=== PATIENT | male | born 1960 | race Caucasian/White ===

== ENCOUNTER 2024-06-28 14:35 | Inpatient (IN) | payer BC, SELFPAY ==
[2024-06-28] VITALS (10 sets, daily range): BP systolic 93–136; BP diastolic 61–86; BMI 32.3; BMI 32.0
--- NOTE | 2024-06-28 12:53 | ED.GENMED ---
History of Present Illness
General
Chief Complaint: Rectal Bleeding
Source: patient
Exam Limitations: none
Time Seen by Provider: 06/28/24 12:36
History of Present Illness
History of Present Illness:
See MDM
Past History
Past History
ED Past Medical History: CAD and Hypercholesterolemia
ED Past Surgical History: Other (left rotator cuff repain, Fem-pop bypass)
Social History
Personal:
Living: with family
Employment: Not employed
Phy Exam
Physical Exam
Physical Exam:
See MDM
Course
Orders/Labs/Results
Orders:
Orders
06/28/24 12:45
Ondansetron Injectable [Zofran] 4 mg .ROUTE .STK-MED ONE
06/28/24 12:52
Cardiac Monitoring- Treatment ONCE
IV Insert/Care/Rem.- Treatment PRN
0.9% Sodium Chloride 1000 ml [Nss] 1,000 ml IV BOLUS
Ondansetron Injectable [Zofran] 4 mg IV NOW STA
Pantoprazole 80 mg/100 ml Nss [Protonix] 80 mg in 100 ml IV NOW
Pantoprazole [Protonix IV] 80 mg IV NOW STA
06/28/24 12:54
Type+Screen Urgent
Complete Blood Count/With Diff Urgent
Comprehensive Metabolic Panel Urgent
PTT Urgent
Prothrombin Time Urgent
06/28/24 13:27
GASTROINTESTINAL CONSULT Urgent
Consulting Provider: Kirk Jay
Was physician already notified: Yes
Abnormal Lab Results
06/28/24
12:54
WBC 12.8 H 10^3/uL
(4.8-10.8)
RBC 2.84 L 10^6/uL
(4.70-6.10)
Hgb 8.2 L g/dL
(13.0-18.0)
Hct 23.8 L %
(39.0-52.0)
RDW 18.3 H %
(11.5-14.5)
Abs Immat Gran (auto) 0.1 H 10^3/uL
(0-0.05)
Absolute Neuts (auto) 10.7 H 10^3/uL
(1.4-6.5)
Neutrophils % 83.4 H %
(42.2-75.2)
Lymphocytes % 10.8 L %
(20.5-51.1)
PT 22.9 H Sec
(11.4-14.6)
APTT 39.4 H Sec
(23.4-35.0)
Carbon Dioxide 21 L mmol/L
(22-30)
BUN 64 H mg/dl
(9-20)
Creatinine 1.5 H mg/dL
(0.7-1.3)
Glucose 148 H mg/dl
(70-99)
06/28/24 12:54
06/28/24 12:54
Vital Signs
Initial and Last Documented VS:
Initial Vital Signs
Temp Pulse Resp BP Pulse Ox
98.2 F 72 16 126/68 99
06/28/24 12:19 06/28/24 12:19 06/28/24 12:19 06/28/24 12:19 06/28/24 12:19
Last Documented Vital Signs
Temp Pulse Resp BP Pulse Ox
98.2 F 68 18 103/66 99
06/28/24 12:19 06/28/24 13:15 06/28/24 13:15 06/28/24 13:00 06/28/24 13:15
MDM/Problems Addressed
Differential Diagnosis Includes:
HPI and MDM Narrative:
64-year-old male presenting with coffee-ground emesis and black stool. This has progressed over the past few days. Patient recently had a complicated hospital stay at [facility]. He received a femoropopliteal bypass. Before the surgery, he needed
cardiac clearance and he was found to have LAD stenosis requiring stent. Patient has been compliant with Xarelto for his A-fib. However, patient was started on aspirin and Plavix after the surgery. at bedside is concerned because she states
he notoriously has low platelets.
On exam, we discussed concern for upper GI bleeding. However, patient does described bloody nose with clots. It is potential that he is swallowing blood. Regardless, given his history and complaint, will start Protonix drip
Physical exam
General: Well appearing and non-toxic
HEENT: protecting airway
Neck: appears supple
CV: No evidence of cyanosis. Normal rate
Resp: No accessory muscle use
Abd: Non-distended and nontender
Extremities: Skin tear to right forearm with mild oozing
Neuro: alert
Psych: Normal affect
Skin: pale
Problems Addressed including Acute and Chronic Conditions affecting care:
1. Upper GI bleeding
Acuity: acute
Prognosis: stable
Details: Will start Protonix drip. Will obtain hemoglobin and platelet testing and ultimately admit
2. Right arm skin tear
Acuity: acute
Prognosis: stable
Details: Gelfoam placed
Updates
Hemoglobin low at 8.2. Patient prophylactically signed consent for blood transfusion if needed. GI made aware. Will admit
Differential Diagnosis (but not limited to): Nosebleed, upper GI bleed, stress ulcer
Testing considered: CT Abd/pelvis but no significant tenderness noted
Drug therapy (if applicable): OTC meds, please see d/c instruction regarding Rx drugs
Amount and/or Complexity of Data Reviewed
Clinical info obtained from: Patient. states that aspirin and Plavix was recently added to his Xarelto regimen
External data reviewed: N/A
Labs I independently reviewed (but not limited to): Hemoglobin 8 point
Radiology: N/A
Pulse Ox: not hypoxic
EKG independently reviewed: N/A
[employer] Manufacturer: A-fib
Critical Care: The high probability of a clinically significant, sudden or life threatening deterioration of the gastrointestinal system(s) required my full and direct attention, intervention and personal management. The aggregate critical care time
was 35 minutes. This time is in addition to time spent performing reported procedures but includes the following:
[x] Data Review and interpretation
[x] Patient assessment and monitoring of vital signs
[x] Documentation
[x] Medication orders and management
Risk of Complication:
Social Determinants of health: Good social support
Discussed with other providers: Hospitalist, slps
Escalation of Care includes Admit/Obs: Given the anemia with concern for active GI bleeding, will admit
Occasional wrong word or 'sound a like' substitutions may have occurred due to the inherent limitations of voice recognition software. Read the chart carefully and recognize, using context, where substitutions have occurred.
*Critical Care Note
Total Time (30-74mins, 75-104mins- exclusive of procedures): 35 min
ED Attending Note
-
Portions of this chart may have been created with voice recognition software.� Occasional wrong word or��sound alike� substitutions may have occurred due to the inherent limitations of voice recognition software.
Discharge Plan
Departure
Patient Disposition: Admit
Date of Disposition: 06/28/24
Time of Disposition: 13:36
Admit to: IMU
Presentation/result/management discussed w/ accepting MD/DO: Hospitalist
Discharge Problem:
UGIB (upper gastrointestinal bleed), Symptomatic anemia
Prescriptions:
No Action
atorvastatin [Lipitor] 40 mg Tablet
40 mg PO QPM
tizanidine 4 mg Tablet
4 mg PO BIDPRN PRN (Reason: muscle spasms)
lisinopril 20 mg Tablet
20 mg PO DAILY
clopidogrel [Plavix] 75 mg Tablet
75 mg PO DAILY
aspirin 81 mg Tablet,Delayed Release (Dr/Ec)
81 mg PO NOON
tramadol 50 mg Tablet
50 mg PO BIDPRN PRN (Reason: moderate pains)
oxycodone-acetaminophen 5-325 mg Tablet
1 tab PO Q6HPRN PRN (Reason: severe pain)
bismuth subsalicylate [Pepto-Bismol] 262 mg/15 mL Suspension
524 mg PO DAILYPRN PRN (Reason: gerd)
hydrochlorothiazide 25 mg Tablet
25 mg PO DAILY
fluoxetine [Prozac] 20 mg Capsule
20 mg PO DAILY
pregabalin [Lyrica] 50 mg Capsule
50 mg PO BID
Xarelto 20 mg Tablet
20 mg PO QPM
Interventions
Interventions:
*Risk Screen - Suicide Last Done: 06/28/24 12:19
*General Assessment Last Done: 06/28/24 12:19
*Neglect/Abuse Screening Last Done: 06/28/24 12:19
EQ-Tvmtwm-Dczkrvgyta Assessment Last Done: 06/28/24 13:22
ED- Cardiac Assessment Last Done: 06/28/24 13:22
ED- Pulmonary Assessment Last Done: 06/28/24 13:22
Discharge Date and Time
Print Language: SOUTH AFRICAN
[2024-06-28] MEDS: PROTONIX 100 IV ×2 (12:57→16:02)
[2024-06-28] MEDS: PROTONIX IV 80 MG IV (12:57)
[2024-06-28] MEDS: NSS 1000 IV (12:58)
[2024-06-28] MEDS: ZOFRAN 4 MG IV ×3 (12:58→22:57)
[2024-06-28 13:07] LABS: % Basophils 0.3 % (0-2); % Eosinophils 0.2 % (0-6); % Immature Granulocytes 0.4 % (0-0.5); % Lymphocytes 10.8 % (20.5-51.1); % Monocytes 4.9 % (1.7-9.3); % Neutrophils 83.4 % (42.2-75.2); Absolute Immature Granulocytes 0.1 10^3/uL (0-0.05); Absolute Lymphocytes 1.4 10^3/uL (1.2-3.4); Absolute Monocytes 0.6 10^3/uL (0.1-0.6); Absolute Neutrophils 10.7 10^3/uL (1.4-6.5); Hematocrit 23.8 % (39.0-52.0); Hemoglobin 8.2 g/dL (13.0-18.0); Mean Corp Hgb Conc. 34.5 g/dL (33.0-37.0); Mean Corpuscular Hgb 28.9 pg (27.0-31.0); Mean Corpuscular Volume 83.8 fL (80.0-94.0); Mean Platelet Volume 10.3 fL (7.4-10.4); Nucleated Red Blood Cells % 0 % (-); Platelet Count 209 10^3/uL (130-400); Red Blood Cell Count 2.84 10^6/uL (4.70-6.10); Red Cell Dist. Width 18.3 % (11.5-14.5); White Blood Cell Count 12.8 10^3/uL (4.8-10.8)
[2024-06-28 13:11] LABS: ALT (SGPT) 24 U/L (0-50); AST (SGOT) 31 U/L (17-59); Alkaline Phosphatase 101 U/L (38-126); Blood Urea Nitrogen 64 mg/dl (9-20); Calcium 9.1 mg/dl (8.4-10.2); Carbon Dioxide 21 mmol/L (22-30); Chloride 102 mmol/L (98-107); Estimated Creatinine Clearance -7 ml/min; Glucose 148 mg/dl (70-99); Potassium 4.5 mmol/L (3.5-5.1); Sodium 137 mmol/L (135-145); Total Bilirubin 0.9 mg/dl (0.2-1.3); Total Protein 6.6 g/dl (6.3-8.2); eGFR 51.67
[2024-06-28 13:15] LABS: APTT 39.4 Sec (23.4-35.0); INR 2.04; PT 22.9 Sec (11.4-14.6)
--- NOTE | 2024-06-28 13:36 | CON.GI ---
Consultation
-
Date/Time Consultation Requested: 06/28/24 13.27 pm
Date/Time Consultation Performed: 06/28/24 13.48 pm
Requesting Provider: Socrates Hickman DO
Performing Provider: Domenica Reed MD
Reason for Consultation: Hematemesis and melena
Medical History
Chief Complaint / HPI
Chief Complaint: Hematemesis and melena
History of Present Illness:
The patient is a 64-year-old male who has a PMH of A-fib on Xerolto for last 4-5 years, peripheral arterial disease status post left lower extremity femoropopliteal bypass on 06/15, preoperative CAD status post stent on 06/13, hypertension,
anxiety/depression, osteoarthritis, iron deficiency anemia, neuropathy, cirrhosis secondary to Tylenol and consuming alcohol, abdominal aortic aneurysm. The patient presented to ER complaining from coffe-grounded emesis and tarry stools. The patient
reports he started to have dark colored stool yesterday morning and had coffee grounded emesis yesterday evening. The patient reported he started to take Xarelto with his Plavix and aspirin since last week after he gave a break due his surgery. The
patient denies any similar symptoms before and denies abdominal pain.He denied vomiting/BM today. The patient reported that his hgb level was found 4.9 about 2 years ago and he had EGD/Colonoscopy at [facility] which was not significant
per patient`s report. He was recommended a capsule endoscopic study but he did not have it. Additionally the patient reported having cirrhosis related alcohol consuming/Tylenol taking in the past but he did not need any follow up for that reason.
Past Medical History
Past Medical History: Arrhythmias (paroxysmal atrial fibrillation on Xerolto ) and Other (peripheral arterial disease status post left lower extremity femoropopliteal bypass on 06/15, preoperative CAD status post stent on 06/13, hypertension,
anxiety/depression, osteoarthritis, iron deficiency anemia, neuropathy, cirrhosis secondary to Tylenol/alcohol consuming )
Social History
Tobacco: Non-Smoker
Alcohol: None
Drug: None
Family History
Family History: Reviewed & Not Pertinent
Allergies / Home Medications
Allergy/AdvReac Type Severity Reaction Status Date / Time
No Known Allergies Allergy Verified 06/28/24 12:18
�Medication �Instructions �Recorded
aspirin 81 mg tablet,delayed 81 mg PO NOON 06/28/24
release
atorvastatin 40 mg tablet (Lipitor) 40 mg PO QPM 06/28/24
bismuth subsalicylate 262 mg/15 mL 524 mg PO DAILYPRN PRN gerd 06/28/24
oral suspension (Pepto-Bismol)
clopidogrel 75 mg tablet (Plavix) 75 mg PO DAILY 06/28/24
fluoxetine 20 mg capsule (Prozac) 20 mg PO DAILY 06/28/24
hydrochlorothiazide 25 mg tablet 25 mg PO DAILY 06/28/24
lisinopril 20 mg tablet 20 mg PO DAILY 06/28/24
oxycodone-acetaminophen 5 mg-325 1 tab PO Q6HPRN PRN severe pain 06/28/24
mg tablet
pregabalin 50 mg capsule (Lyrica) 50 mg PO BID 06/28/24
rivaroxaban 20 mg tablet (Xarelto) 20 mg PO QPM 06/28/24
tizanidine 4 mg tablet 4 mg PO BIDPRN PRN muscle spasms 06/28/24
tramadol 50 mg tablet 50 mg PO BIDPRN PRN moderate pains 06/28/24
Review of Systems
-
History Source: Patient
All other systems: A 12 pt ROS was Negative except as stated above in HPI
Constitutional: Reports No Symptoms
EENT: Reports No Symptoms
Respiratory: Reports No Symptoms
Cardiac: Reports No Symptoms
Abdomen/GI: Reports No Symptoms
: Reports No Symptoms
Musculoskeletal: Reports No Symptoms
Skin: Reports No Symptoms
Neurological: Reports No Symptoms
Vital Signs
Temp Pulse Resp BP Pulse Ox
98.2 F 68 18 103/66 99
06/28/24 12:19 06/28/24 13:15 06/28/24 13:15 06/28/24 13:00 06/28/24 13:15
Physical Exam
Exam
General: Well Developed, Well Nourished and No Apparent Distress
HEENT: Normocephalic and Anicteric
Respiratory: Clear
Cardiac: S1/S2 and Irregular Rhythm
GI: Soft and Non Tender
Musculoskeletal: No Clubbing, No Cyanosis and No Edema
Skin: Warm and Dry
Neuro: Awake, Alert, Oriented and AO x 3
Results
WBC 12.8 10^3/uL (4.8-10.8) H 06/28/24 12:54
Hgb 8.2 g/dL (13.0-18.0) L 06/28/24 12:54
Hct 23.8 % (39.0-52.0) L 06/28/24 12:54
MCV 83.8 fL (80.0-94.0) 06/28/24 12:54
Plt Count 209 10^3/uL (130-400) 06/28/24 12:54
Absolute Neuts (auto) 10.7 10^3/uL (1.4-6.5) H 06/28/24 12:54
PT 22.9 Sec (11.4-14.6) H 06/28/24 12:54
INR 2.04 06/28/24 12:54
APTT 39.4 Sec (23.4-35.0) H 06/28/24 12:54
Sodium 137 mmol/L (135-145) 06/28/24 12:54
Potassium 4.5 mmol/L (3.5-5.1) 06/28/24 12:54
Chloride 102 mmol/L (98-107) 06/28/24 12:54
Carbon Dioxide 21 mmol/L (22-30) L 06/28/24 12:54
BUN 64 mg/dl (9-20) H 06/28/24 12:54
Creatinine 1.5 mg/dL (0.7-1.3) H 06/28/24 12:54
Calcium 9.1 mg/dl (8.4-10.2) 06/28/24 12:54
Total Bilirubin 0.9 mg/dl (0.2-1.3) 06/28/24 12:54
AST 31 U/L (17-59) 06/28/24 12:54
ALT 24 U/L (0-50) 06/28/24 12:54
Alkaline Phosphatase 101 U/L (38-126) 06/28/24 12:54
Diagnostic Image Results:
No Imaging related GI
Prior GI Procedures:
Patient reports having colonoscopy and endoscopy 2 years ago at [facility] and results were not significant per patient`s report.
EGD:
Colonoscopy:
Assessment / Plan
-
Impression: The patient is a
Assessment/Plan:
#Hematemesis and melena possibly secondary to upper GI bleeding likely secondary to anticoagulants
-Patient has been on Aspirin+Plavix+Xarelto since last week
-Last taking all anticoagulants was yesterday
-Had 3 episodes of hematemesis and one episode of melena yesterday
-Hgb level 8.2 from 13, BUN 64
-Follow up Hgb level with hgb serials Q8 H
-Keep HGB level ~8-9 considering his CAD
-Hold aspirin, Plavix and Xarelto for now
-Continue PPI gtt
-No plan for endoscopy for now if hgb level stays kirby
-Cardio cons is recommended
#Hx of cirrhosis
-Reports related alcohol consuming or Tylenol taking in the past
-Did not need follow up for that reason in the past
-AST 31, ALT 24, ALP 101, Albumin 4, total protein 6.6 likely liver recovered
-Abd US can be considered
-EGV was not seen on EGD 2 years ago, per patient`s report
We will follow up the patient for further recommendations.
-
-
Thank you for consultation and allowing me to participate in the patient's care. Please call the travel consultant GI physician during the after hours with any questions or concerns.
--- NOTE | 2024-06-28 14:09 | HPS.HSE ---
Addendum entered and electronically signed by Zeinab Christina MD 06/28/24 14:31:
Ordered Octreotide drip and Ceftriaxone to treat Variceal Bleeding.
Original Note:
Family Physician
-
Family Physician:
Chief Complaint
-
rectal bleeding
History of Present Illness
64-year-old male past medical history of paroxysmal atrial fibrillation on Eliquis, peripheral arterial disease status post left lower extremity femoropopliteal bypass on 06/15, preoperative CAD status post stent on 06/13, hypertension,
anxiety/depression, osteoarthritis, iron deficiency anemia, neuropathy, cirrhosis secondary to Tylenol, abdominal aortic aneurysm presenting with rectal bleeding since yesterday. He had 1 episode of black rectal bleeding. He had 2 episodes of
vomiting of coffee-ground emesis since yesterday. Yesterday he also had bloody clots from his left nostril. He has been having cough secondary to the vomiting and nausea.
On 06/15 he had left lower extremity femoropopliteal bypass. He was started on aspirin and Plavix at that time in addition to Xarelto. He had preoperative stress test on 06/13 and was found to have CAD had stent placed at that time. His
hemoglobin at that time was 13.
He has chronic shortness of breath. He denies any dizziness. He denies any chest pain.
Patient has a history of anemia discovered 2 years ago without bleeding and at that time he had blood transfusion, EGD and colonoscopy which were unremarkable.
He states that he has a history of cirrhosis secondary to excessive Tylenol use in the past. He denies using Tylenol anymore. He denies alcohol. He denies smoking. He denies any family history of GI problems.
Medical History
Past Medical History
Past Medical History: Reports Other (paroxysmal atrial fibrillation on Eliquis, peripheral arterial disease status post left lower extremity femoropopliteal bypass on 06/15, preoperative CAD status post stent on 06/13, hypertension,
anxiety/depression, osteoarthritis, iron deficiency anemia, neuropathy, cirrhosis secondary to Tylenol, )
Past Surgical History: Reports Orthopedic
Social History
Tobacco: Non-smoker
Alcohol: None
Drug: None
Family History
Family History: Not pertinent
Allergies / Home Medications
Allergies reflects when Allergies were last updated in [facility].
Home Medications with original date entered in [facility]
Allergy/Medication List:
Allergies
Allergy/AdvReac Type Severity Reaction Status Date / Time
No Known Allergies Allergy Verified 06/28/24 12:18
Home Medications
aspirin 81 mg tablet,delayed release 81 mg PO NOON 06/28/24
atorvastatin 40 mg tablet (Lipitor) 40 mg PO QPM 06/28/24
bismuth subsalicylate 262 mg/15 mL oral suspension (Pepto-Bismol) 524 mg PO DAILYPRN PRN gerd 06/28/24
clopidogrel 75 mg tablet (Plavix) 75 mg PO DAILY 06/28/24
fluoxetine 20 mg capsule (Prozac) 20 mg PO DAILY 06/28/24
hydrochlorothiazide 25 mg tablet 25 mg PO DAILY 06/28/24
lisinopril 20 mg tablet 20 mg PO DAILY 06/28/24
oxycodone-acetaminophen 5 mg-325 mg tablet 1 tab PO Q6HPRN PRN severe pain 06/28/24
pregabalin 50 mg capsule (Lyrica) 50 mg PO BID 06/28/24
rivaroxaban 20 mg tablet (Xarelto) 20 mg PO QPM 06/28/24
tizanidine 4 mg tablet 4 mg PO BIDPRN PRN muscle spasms 06/28/24
tramadol 50 mg tablet 50 mg PO BIDPRN PRN moderate pains 06/28/24
Review of Systems
-
History Source: Patient
A 12 point ROS was completed and negative except as noted: Yes
Constitutional: Reports No Symptoms
EENT: Reports No Symptoms
Respiratory: Reports No Symptoms
Cardiac: Reports No Symptoms
Abdomen/GI: Reports No Symptoms
: Reports No Symptoms
Musculoskeletal: Reports No Symptoms
Skin: Reports No Symptoms
Neurological: Reports No Symptoms
Endocrine: Reports No Symptoms
Hematologic/Lymphatic: Reports No Symptoms
Psych: Reports No Symptoms
Physical Exam
Vital Signs
Vital Signs
Temp Pulse Resp BP Pulse Ox
98.2 F 68 18 103/66 99
06/28/24 12:19 06/28/24 13:15 06/28/24 13:15 06/28/24 13:00 06/28/24 13:15
Physical Exam
General: Well Developed, Well Nourished and No Apparent Distress
HEENT: NormoCephalic, Moist mucous membranes and Atraumatic
Respiratory: Clear
Cardiac: S1/S2 and Regular Rhythm; No Murmur or Rub
GI: Soft, Non Tender, Non Distended and Normal Bowel Sounds; No Organomegaly
Rectal: Deferred by Provider
Musculoskeletal: No Clubbing, No Cyanosis and No Edema
Skin: No Rash
Neuro: Nonfocal/grossly intact
Laboratory Results
-
06/28/24 12:54
06/28/24 12:54
Laboratory Results
PT 22.9 Sec (11.4-14.6) H 06/28/24 12:54
INR 2.04 06/28/24 12:54
APTT 39.4 Sec (23.4-35.0) H 06/28/24 12:54
Total Bilirubin 0.9 mg/dl (0.2-1.3) 06/28/24 12:54
AST 31 U/L (17-59) 06/28/24 12:54
ALT 24 U/L (0-50) 06/28/24 12:54
Alkaline Phosphatase 101 U/L (38-126) 06/28/24 12:54
Data Reviewed
-
Lab Data: Labs Reviewed by me
Old Records: Reviewed
Impression/Plan
-
IMPRESSION:
PLAN:
# Hematemesis/melena secondary to upper GI bleeding secondary to aspirin/Plavix and Xarelto simultaneously
# Acute blood loss anemia
-Hemoglobin 8.2 from 13
-Hold aspirin, Xarelto, Plavix for now but will need to resume at least aspirin in the short-term
-N.p.o.
-Protonix drip
-Zofran
-GI consulted
# Left nasal epistaxis versus coffee ground regurgitation from GI tract
-No active bleeding
-Continue to monitor for bleeding
# Acute kidney injury secondary to blood loss
-IV fluids given
-Hold nephrotoxic medication
PAD with recent left femoropopliteal bypass on 06/15
-Hold aspirin, Plavix and Xarelto
CAD with recent LAD stent on 06/13
-Hold aspirin and Plavix for now
-Continue statin
Paroxysmal atrial fibrillation
-Hold Xarelto
Abdominal aortic aneurysm
-Being monitored
History of cirrhosis secondary to Tylenol
Essential hypertension
-Hold hydrochlorothiazide
-Hold lisinopril
Anxiety/depression
-Continue fluoxetine
Osteoarthritis
-Continue Percocet, tramadol, tizanidine
Iron deficiency anemia
Polyneuropathy
-Continue pregabalin
Full code
DVT prophylaxis�SCDs
N.p.o.
--- NOTE | 2024-06-28 15:59 | CON.CAR ---
Addendum entered and electronically signed by Yo Maria MD 06/28/24 21:48:
I saw and examined the patient.
The DAIRY TRUCK DRIVER's note was reviewed and I agree with the note.
Comment: OK to hold Xarelto and Plavix. Hold ASA as little as possible. Once stable and OK with GI we will prefer DUAL therapy with Eliquis and ASA. If Eliquis is not affordable warfarin would be my next choice and Xaretlo and Pradaxa and Savaysa
likely have more GI bleeding than Eliquis and warfarin. In the residential the patient has considered [facility] and that is a potential option later. I prefer Eliquis + Plavix for one year and then go to single agent Eliquis (barring a need to go
back to dual therapy (ACS/new revascularization).
Original Note:
Consultation
Consultation Request
Date/Time Consultation Requested: 06/28/2024 16:00
Date/Time Consultation Performed: 06/28/2024 16:00
Requesting Provider: Dr. Christina
Performing Provider: MILA Hammonds for Dr. Maria
Reason for Consultation: GI bleed on triple therapy with recent coronary artery stenting
Medical History
-
Chief Complaint: Coffee-ground emesis, black stool
History of Present Illness:
Aguilar Ordonez is a 64-year-old male (known to Dr. Castillo Parada, his primary high speed printer operator), with coronary artery disease status post stenting 06/13/2024 (location unknown), PAD with left femoral to posterior tibial artery bypass 06/15/2024, COPD,
thoracic aortic dilation, hypertension, dyslipidemia, permanent atrial fibrillation (on rivaroxaban), and former smoker who presented to the emergency department with a chief complaint of coffee-ground emesis and black stool. This progressed over
several days. He also endorsed epistaxis. He was having active hematemesis during the consultation.
I reviewed the discharge summary from [facility]. It documents that he will continue DAPT per cardiology and restart rivaroxaban 3 days after discharge. I did not see a stop date on the aspirin nor clopidogrel or de-escalate to two agents.
Past Medical History
Past Medical History: Arrhythmias (Permanent atrial fibrillation [on rivaroxaban]), CAD, COPD, HTN, Hypercholesterolemia and Other (PVD/PAD)
Social History
Tobacco: Former Smoker
Alcohol: None
Drug: None
Personal:
Living: With Family
Family History
Family History: Reviewed & Not Pertinent
Allergies / Home Medications
Allergy/AdvReac Type Severity Reaction Status Date / Time
No Known Allergies Allergy Verified 06/28/24 12:18
�Medication �Instructions �Recorded �Confirmed �Type
aspirin 81 mg tablet,delayed 81 mg PO NOON Blood Clot 06/28/24 06/28/24 History
release Prevention/Tx
atorvastatin 40 mg tablet (Lipitor) 40 mg PO QPM High Cholesterol 06/28/24 06/28/24 History
bismuth subsalicylate 262 mg/15 mL 524 mg PO DAILYPRN PRN GERD 06/28/24 06/28/24 History
oral suspension (Pepto-Bismol)
clopidogrel 75 mg tablet (Plavix) 75 mg PO DAILY Blood Clot 06/28/24 06/28/24 History
Prevention/Tx
fluoxetine 20 mg capsule (Prozac) 20 mg PO DAILY depression/anxiety 06/28/24 06/28/24 History
hydrochlorothiazide 25 mg tablet 25 mg PO DAILY Fluid Retention/BP 06/28/24 06/28/24 History
lisinopril 20 mg tablet 20 mg PO DAILY Blood Pressure 06/28/24 06/28/24 History
oxycodone-acetaminophen 5 mg-325 1 tab PO Q6HPRN PRN severe pain 06/28/24 06/28/24 History
mg tablet
pregabalin 50 mg capsule (Lyrica) 50 mg PO BID neuropathy/pain 06/28/24 06/28/24 History
rivaroxaban 20 mg tablet (Xarelto) 20 mg PO QPM Blood Clot 06/28/24 06/28/24 History
Prevention/Tx
tizanidine 4 mg tablet 4 mg PO BIDPRN PRN muscle spasms 06/28/24 06/28/24 History
tramadol 50 mg tablet 50 mg PO BIDPRN PRN moderate pain 06/28/24 06/28/24 History
Review of Systems
-
History Source: Patient
All other systems: Negative unless noted
Constitutional: Fatigue
EENT: No Symptoms
Respiratory: No Symptoms
Cardiac: No Symptoms
Abdomen/GI: Nausea, Vomiting and Black Stools
: No Symptoms
Musculoskeletal: No Symptoms
Skin: No Symptoms
Neurological: No Symptoms
Endocrine: No Symptoms
Hematologic/Lymphatic: No Symptoms
Physical Exam
Vital Signs
Temp Pulse Resp BP Pulse Ox
98.2 F 79 13 136/77 99
06/28/24 12:19 06/28/24 15:15 06/28/24 15:15 06/28/24 15:00 06/28/24 15:15
Lab Results
06/28/24 12:54
06/28/24 12:54
Physical Exam
General: Well Developed, Well Nourished and Other (vomiting)
HEENT: Normocephalic and Anicteric
Respiratory: Clear and Non Labored Respirations
Cardiac: S1/S2 and Regular Rhythm
Breast: Deferred by me
GI: Normal Bowel Sounds, Tender and Distended
Rectal: Deferred by Provider
Genito-urinary: No Costovertebral Tender
Musculoskeletal: No Clubbing and No Cyanosis
Skin: Warm and Dry
Neuro: AO x 3
Hematologic/Lymphatic: No Lymphadenopathy
Psych: Calm
Impression / Plan
-
Hematemesis/melena in the setting of upper GI bleeding
-On octreotide and pantoprazole
-He is actively bleeding
-His hemoglobin at discharge was 9.2 on 06/17/2024 and was 11.5 04/23/2020
-No role for triple therapy, consider apixaban in place of rivaroxaban given GI bleed
-GI following
CAD
-Stable without chest pain
-PCI 06/13/2024 at [facility]
-EKG ordered
PAD
-Left femoral to posterior tibial artery bypass 06/15/2024
AMY
-Creatinine at the time of discharge 1.16 and BUN 42 (06/17/2024)
-Creatinine clearance of -7 on metabolic panel today is likely a laboratory error
Permanent atrial fibrillation
-Rate control, outpatient cardiology note reflects no plans to restore sinus rhythm
-He did not maintain sinus with amiodarone
-Oral Anticoagulation: Rivaroxaban 20 mg on hold, case management to gutierrez apixaban
-[id number]: Score at least 2 (HTN, Vascular disease)
Hypertension, follow with anemia
Prior cirrhosis, per patient in the setting of excessive acetaminophen use
Dyslipidemia, atorvastatin on hold as he is n.p.o.
Thrombocytopenia, follows with hematology
COPD, stable without wheeze
Thoracic aortic dilation
Chronic pain, lumbar radiculopathy, status post lumbosacral epidural injections, follows with [facility]
Data Reviewed
-
EKG: Other (Ordered)
Labs: Labs Reviewed by me
Old Records: Requested and Reviewed
[2024-06-28] MEDS: SANDOSTATIN 500.6 MCG IV (16:01)
[2024-06-28] MEDS: ROCEPHIN 2000 MG IV (16:43)
[2024-06-28] MEDS: STERILE WATER FOR INJECTION 20 ML IV (16:43)
--- NOTE | 2024-06-28 17:21 | PTCARENOTE ---
Assumed care for patient, transferred via stretcher from ED. AAOx3, but NEZ PERCE. Pt A-fib on tele. 97% on room air, occasional cough, with bloody sputum. Pt had one episode of vomiting. Administered PRN IV Zofran. Wounds on left leg see wound
management, dressing changed. Skin tear on right arm, foam applied. Pt sat at the side of the bed to void using urinal. Pt remains NPO at this time see orders. Pt oriented to the unit. at the bedside. Pt has call anderson within reach.
[2024-06-28 17:22] LABS: Iron 69 ug/dl (49-181)
[2024-06-28 17:32] LABS: Percent Saturation 19 % (20-50); Total Iron Binding Capacity 359 ug/dl (261-462)
[2024-06-28] MEDS: LIPITOR 40 MG PO (18:01)
[2024-06-28 18:36] LABS: Folate 9.6 ng/ml (2.76-20); Vitamin B12 466 pg/ml (239-931)
[2024-06-28 20:39] LABS: Hematocrit 22.4 % (39.0-52.0); Hemoglobin 7.5 g/dL (13.0-18.0)
[2024-06-28] MEDS: LYRICA 50 MG PO (22:17)
--- NOTE | 2024-06-28 23:07 | PTCARENOTE ---
Addendum entered by Nicole Stark RN 06/28/24 23:34:
Pt had 1 episode of emesis, brown with red tint.
Original Note:
Pt continues to feel nauseas. Pt refusing personal care until nauseas is gone, risk V benefits explained. Pt Lyrica held until Zofran could be given. Pt h&h resulting with drop. Pt showing no active sign of bleeding vitals stable at this time. Felice
SPEED BELT SANDER TENDER made aware, will repeat h&h in Am with morning labs. Assessment care and vitals as charted.
[2024-06-29] VITALS (26 sets, daily range): BP systolic 103–174; BP diastolic 69–110; BMI 32.0
[2024-06-29 03:24] LABS: ALT (SGPT) 22 U/L (0-50); AST (SGOT) 26 U/L (17-59); Albumin 3.5 g/dl (3.5-5.0); Alkaline Phosphatase 83 U/L (38-126); Blood Urea Nitrogen 65 mg/dl (9-20); Calcium 8.8 mg/dl (8.4-10.2); Carbon Dioxide 20 mmol/L (22-30); Chloride 105 mmol/L (98-107); Estimated Creatinine Clearance 59 ml/min; Glucose 167 mg/dl (70-99); Potassium 4.6 mmol/L (3.5-5.1); Sodium 138 mmol/L (135-145); Total Bilirubin 0.6 mg/dl (0.2-1.3); eGFR 47.82
[2024-06-29 03:43] LABS: % Basophils 0.2 % (0-2); % Eosinophils 0.2 % (0-6); % Immature Granulocytes 0.2 % (0-0.5); % Lymphocytes 11.6 % (20.5-51.1); % Neutrophils 80.8 % (42.2-75.2); Absolute Monocytes 0.6 10^3/uL (0.1-0.6); Absolute Neutrophils 6.7 10^3/uL (1.4-6.5); Hematocrit 20.1 % (39.0-52.0); Hemoglobin 6.8 g/dL (13.0-18.0); Mean Corp Hgb Conc. 33.8 g/dL (33.0-37.0); Mean Corpuscular Hgb 29.8 pg (27.0-31.0); Mean Corpuscular Volume 88.2 fL (80.0-94.0); Mean Platelet Volume 10.3 fL (7.4-10.4); Nucleated Red Blood Cells % 0 % (-); Platelet Count 129 10^3/uL (130-400); Red Blood Cell Count 2.28 10^6/uL (4.70-6.10); Red Cell Dist. Width 18.7 % (11.5-14.5); White Blood Cell Count 8.3 10^3/uL (4.8-10.8)
--- NOTE | 2024-06-29 03:56 | PTCARENOTE ---
Addendum entered by Nicole Stark RN 06/29/24 04:57:
PRBC transfusing.
Original Note:
Pt repeat H&H resulting critical at 6.8/20.1. Night DIAMOND DIE POLISHER made aware, orders for 1 unit PRBC.
--- NOTE | 2024-06-29 03:59 | W.PN.UPDATE ---
Update Note
Progress Note Update
RN notified COMMUNITY RELATIONS DIRECTOR, hgb critical 6.8/20.1, No active bleeding, vs stable, patient stated 'nauseous' , without any other complaints, Zofran order is in place. 1 episode of Emesis with red and brown liquid, Abd wnl per RN.
Will transfuse 1 unit of PRBCs
will also add NSS @ 100 cc/hr, for AMY BUN 65, Creat 1.6 Likely due to blood loss
GI consult in place
[2024-06-29] MEDS: SANDOSTATIN 500.6 MCG IV ×2 (04:26→17:53)
[2024-06-29] MEDS: NSS 1000 IV ×2 (04:26→17:53)
[2024-06-29] MEDS: ZOFRAN 4 MG IV ×2 (04:58→21:20)
[2024-06-29] MEDS: PROTONIX 100 IV ×2 (05:33→15:51)
[2024-06-29] MEDS: COMPAZINE 10 MG IV (07:59)
--- NOTE | 2024-06-29 08:28 | PTCARENOTE ---
Addendum entered by Rosana Desir 06/29/24 13:38:
Pt continues to report nausea despite compazine. Pt's at bedside, requesting Ativan to help pt rest. Dr. Hall and Dr. Jay notified of ongoing nausea and Ativan request. Order received for one time dose of Ativan PO. Medication administered
to pt who then spit pill on the floor. Pt's and this RN questioned him, he states he 'thought it was ice'. Pill retrieved from floor and wasted with RN witness, new dose obtained from pyxis and pt swallowed medication. Shortly after, order
received for PRN IV Reglan. Pt noted to be sleeping and requested not to disturb him at this time.
Original Note:
Pt received from shiftman. Unit of blood completed, see TAR. C/o unrelieved nausea and dry heaves despite receiving Zofran. Dr. Hall notified via TT, one time order received for compazine. Administered as ordered. Pt to US via stretcher.
[2024-06-29] MEDS: LYRICA PO (08:57)
--- NOTE | 2024-06-29 10:44 | W.PN.CD ---
Addendum entered and electronically signed by MILA Jimenez 06/29/24 16:04:
Please let us know when patient will be discharged and cleared for OAC so that we can provide samples of Eliquis to hold him over until his insurance is cleared (see CM notes).
Original Note:
Today's Communication / Plan
-
-
He is OK to proceed to GI procedures to evaluate and control bleeding from cardiac standpoint
When ok with medicine and GI begin ASA 81 mg daily
When OK with medicine for anticoagulation beyond ASA then 1) stop ASA and 2) start Eliquis + Clopidogrel. If significnat cirrhosis then consider warfarin over
Anticipate at 1 yr marquita from PCI of LAD the clopidogrel will be stopped if CAD/PAD are stable
Dr. Ac Parada (primary respiratory care assistant) at [facility] updated via [employer] message.
Cardiology will sign off.
Impression / Plan
-
Bleeding
- Presumably UGI but epistaxis also considered per GI
Anticoagulant/antiplatelet therapy
- We stopped triple therapy
- Not yet on ASA
- Goal will be double therapy Eliquis / clopidogrel
CAD
-Stable without chest pain
-PCI 06/13/2024 at [facility]
-EKG OK, no ST-T changs, perhaps some QT prolongation, likely overestimated by computer
PAD
-Left femoral to posterior tibial artery bypass 06/15/2024
AMY
-Creatinine at the time of discharge 1.16 [facility]. Some of BUN may be from blood in GI tract
-Creatinine clearance of -7 on metabolic panel today is likely a laboratory error
Permanent atrial fibrillation
-Rate control, outpatient cardiology note reflects no plans to restore sinus rhythm
-He did not maintain sinus with amiodarone
-Oral Anticoagulation: Rivaroxaban 20 mg on hold, case management to gutierrez apixaban
-[id number]: Score at least 2 (HTN, Vascular disease)
Hypertension, follow with anemia
Prior cirrhosis, per patient in the setting of excessive acetaminophen use
Dyslipidemia, atorvastatin on hold as he is n.p.o.
Thrombocytopenia, follows with hematology
COPD, stable without wheeze
Thoracic aortic dilation
Chronic pain, lumbar radiculopathy, status post lumbosacral epidural injections, follows with [facility]
Subjective:
No CP
Physical Exam
Vital Signs/Labs
Vital Signs
Temp Pulse Resp BP Pulse Ox
98.2 F 88 15 157/86 96
06/29/24 07:28 06/29/24 10:00 06/29/24 10:00 06/29/24 08:00 06/29/24 10:01
06/28/24 06/29/24 06/30/24
06:59 06:59 06:59
Actual Weight 106.8 kg
06/29/24 02:48
PT 22.9 Sec (11.4-14.6) H 06/28/24 12:54
INR 2.04 06/28/24 12:54
APTT 39.4 Sec (23.4-35.0) H 06/28/24 12:54
Physical Exam
Constitutional: No acute distress
EENT: Anicteric
Cardiovascular: Rhythm/rate is irregular
Respiratory: Respiratory effort normal and Lungs clear to auscul.
GI: Soft and Distention absent
Neuro/Psych: AO x 3
Data Reviewed
-
Date of Service: June 29, 2024
[2024-06-29 11:00] LABS: Hematocrit 22.6 % (39.0-52.0); Hemoglobin 7.9 g/dL (13.0-18.0)
[2024-06-29 11:08] LABS: INR 1.45; PT 18.2 Sec (11.4-14.6)
--- NOTE | 2024-06-29 11:18 | W.PN.GI.CBS2 ---
Today's Communication / Plan
-
.
Assessment / Plan
-
Impression: The patient is a 64-year-old male who has a PMH of A-fib on Xerolto for last 4-5 years, peripheral arterial disease status post left lower extremity femoropopliteal bypass on 06/15, preoperative CAD status post stent on 06/13,
hypertension, anxiety/depression, osteoarthritis, iron deficiency anemia, neuropathy, cirrhosis secondary to consuming alcohol, abdominal aortic aneurysm. The patient presented to ER complaining from coffe-grounded emesis and tarry stools. The
patient reported he started to take all 3 medication together including Xarelto with his Plavix and aspirin since last week. Additionally, he reported having blood clots from his nose and swallowing some of it which is what he thinks he vomited.
This has been since resuming his Xarelto. The patient also reported that his hgb level was found 4.9 about 2 years ago and he had EGD/Colonoscopy at [facility] which was not significant per patient`s report. He was recommended a capsule
endoscopic study but he did not have it. Additionally the patient reported having cirrhosis related alcohol consuming in the past but he did not have any follow up for that reason. An Abd US was ordered.
Assessment/Plan:
#Anemia possible bleeding multiplesides
-Not clear it is from upper GI with current nose bleeds: recurrent nature with copious amounts of blood clots, per patient report
-Had 3 episodes of questionable hematemesis episodes
-Suspect his anemia is multifactorial
-IV and procedure sites are not bleeding but patient reported excessive bleeding from right forearm site yesterday.
-Appreciate for cardio input: OK to proceed to GI procedures to evaluate and control bleeding from cardiac standpoint
#Melena possibly secondary to upper GI bleeding likely secondary to anticoagulants
-Patient has been on Aspirin+Plavix+Xarelto since last week
-Last taking all anticoagulants was 06/27
-Had one episode of melena on 06/27
-Hgb level 6. 8 on 06/29 am/ 1 U RBC on 06/29 and HGB level 7.9 after transfusion
-Follow up Hgb level with hgb serials Q8 H
-PLT 129 Dropped from 209
-Keep HGB level ~8-9 considering his CAD
-Hold aspirin, Plavix and Xarelto for now
-Continue PPI gtt
-No plan for endoscopy for now if hgb level stays kirby
#Hx of cirrhosis
-Reports related alcohol consuming
- No prior workup, reportedly an incidental finding on CT Scan 2 years ago
-Recommend starting with abdominal US given history somewhat unclear
-AST 26, ALT 22, ALP 83 , Albumin 4, total protein 6.6
We will follow up the patient for further recommendations.
Subjective
Subjective
Date of Service: June 29, 2024
Patient was seen in his bed denying any hematemesis today and reporting decreased bleeding from his nostrils this morning.
Objective
Data Reviewed
Laboratory Data:
Laboratory Results
06/29/24 10:48
06/29/24 02:48
Laboratory Results
PT 18.2 Sec (11.4-14.6) H 06/29/24 10:48
INR 1.45 06/29/24 10:48
APTT 39.4 Sec (23.4-35.0) H 06/28/24 12:54
Total Bilirubin 0.6 mg/dl (0.2-1.3) 06/29/24 02:48
AST 26 U/L (17-59) 06/29/24 02:48
ALT 22 U/L (0-50) 06/29/24 02:48
Alkaline Phosphatase 83 U/L (38-126) 06/29/24 02:48
Vital Signs and I&O:
Vital Signs
Temp Pulse Resp BP Pulse Ox
98.2 F 88 15 157/86 96
06/29/24 07:28 06/29/24 10:00 06/29/24 10:00 06/29/24 08:00 06/29/24 10:01
I&O
06/28/24 06/29/24 06/30/24
06:59 06:59 06:59
Intake Total 630 / 630 250 / 250
Output Total 800 / 800 275 / 275
Balance -170 / -170 -25 / -25
Physical Exam
Physical Exam
HEENT: Anicteric and Other (See HPI )
Cardiology: S1, S2 and Irregular Rate/Rhythm
Pulmonary: Clear
GI: Soft, Non Distended and Non Tender
Extremities: No Edema
Neuro: Non Focal
--- NOTE | 2024-06-29 11:33 | W.PN.HOSP.TC ---
Today's Communication/Plan
-
Await Gi recs for procedures
start asa STEPHEN
trend h/h and transfuse prn
IV ppi/octreotide
Assessment / Plan
Assessment / Plan
General: Well Developed, Well Nourished and No Apparent Distress
HEENT: NormoCephalic, Moist mucous membranes and Atraumatic
Respiratory: Clear
Cardiac: S1/S2 and Regular Rhythm; No Murmur or Rub
GI: Soft, Non Tender, Non Distended and Normal Bowel Sounds; No Organomegaly
Rectal: Deferred by Provider
Musculoskeletal: No Clubbing, No Cyanosis and No Edema. bruising over UE noted
Skin: No Rash
Neuro: Nonfocal/grossly intact
# Hematemesis/melena secondary to upper GI bleeding secondary to aspirin/Plavix and Xarelto simultaneously
# Acute blood loss anemia
-Hemoglobin 7.9 s/p 1u of PRBC. Trend h/h. 2 IV at all times.
-Cardiology recommending patient to be at least started on aspirin 81 mg daily as with recent stents
-N.p.o.
-Protonix drip/octreotide drip, rocephin
-Zofran
-GI consulted
# Left nasal epistaxis versus coffee ground regurgitation from GI tract
-No active bleeding
-Continue to monitor for bleeding
# Elevated creatine likeyl 2/2 Blood loss anemia and on diuretics/ACEI
-IV fluids
-Hold nephrotoxic medication
PAD with recent left femoropopliteal bypass on 06/15
-Once cleared by GI plan will be to restart patient on Eliquis and Plavix and DC ASA.
CAD with recent LAD stent on 06/13
-Hold Plavix for now
-Continue statin
Paroxysmal atrial fibrillation
-Once cleared by GI plan will be to restart patient on Eliquis and Plavix.
Abdominal aortic aneurysm
-Being monitored
History of cirrhosis secondary to Tylenol
-Abd US - Cirrhotic appearing liver. No gallstones or bile duct dilatation. Limited visualization of the pancreas. No ascites identified. The spleen is normal in size.
Essential hypertension
-Hold hydrochlorothiazide
-Hold lisinopril
-avoid hypotension
Anxiety/depression
-Continue fluoxetine
Osteoarthritis
-Continue Percocet, tramadol, tizanidine
Iron deficiency anemia
Polyneuropathy
-Continue pregabalin
Full code
DVT prophylaxis�SCDs in setting of GIB
d/w with cardiology.
Pt high risk as with recent LAD stent and LE bypass and now with GI bleeding and have to hold DOAC as with bleeding.
Anticipated Discharge: > 48 hours
Subjective/Interval History
-
Date of Service: June 29, 2024
states of dry heaves
no bm this morning
Objective Data
-
Labs:
Laboratory Results
06/29/24 06/29/24 06/29/24
00:45 02:48 02:48
WBC 8.3
Hgb Cancelled Cancelled 6.8 L*
Hct Cancelled Cancelled
Plt Count
PT
INR
Sodium
Potassium
Chloride
Carbon Dioxide
BUN
Creatinine
Glucose
Calcium
Total Bilirubin
AST
ALT
Alkaline Phosphatase
06/29/24 06/29/24
02:48 10:48
WBC
Hgb 7.9 L
Hct 20.1 L* 22.6 L
Plt Count 129 L D
PT 18.2 H
INR 1.45
Sodium 138
Potassium 4.6
Chloride 105
Carbon Dioxide 20 L
BUN 65 H
Creatinine 1.6 H
Glucose 167 H
Calcium 8.8
Total Bilirubin 0.6
AST 26
ALT 22
Alkaline Phosphatase 83
Vital Signs:
Vital Signs
Temp Pulse Resp BP Pulse Ox
98.2 F 88 15 157/86 96
06/29/24 07:28 06/29/24 10:00 06/29/24 10:00 06/29/24 08:00 06/29/24 10:01
I&O
06/28/24 06/29/24 06/30/24
06:59 06:59 06:59
Intake Total 630 / 630 250 / 250
Output Total 800 / 800 275 / 275
Balance -170 / -170 -25 / -25
[2024-06-29] MEDS: ATIVAN PO (12:48)
[2024-06-29] MEDS: ASPIR LOW (ENTERIC COATED) 81 MG PO (12:48)
[2024-06-29] MEDS: ATIVAN 0.5 MG PO (12:56)
[2024-06-29 14:59] LABS: Hematocrit 22.1 % (39.0-52.0); Hemoglobin 7.5 g/dL (13.0-18.0)
[2024-06-29] MEDS: REGLAN 5 MG IV (15:28)
[2024-06-29] MEDS: ROCEPHIN 1000 MG IV (15:29)
[2024-06-29] MEDS: STERILE WATER FOR INJECTION 10 ML IV (15:29)
--- NOTE | 2024-06-29 15:33 | CM ---
Patient with Dx UGI bleed, epistaxis, anemia, cirrhosis. Room air. Receiving IV Abx, IV Octreotide. NPO/IVF. Plan EGD tomorrow.
Met with patient who resides with his in a 2 story house.
The patient has been independent in ADLs and ambulation using his SPC.
He is retired.
DME - SPC, RW
VN - current with [facility] for nurse & PT and wishes to resume at d/c
No prior SNF
PCP - Cornell Santiago
Pharmacy - [facility], Kenna Deluna
Referral to [facility] placed in [facility].
CM Consult: Gutierrez check Eliquis
Called patient's [facility] this morning and spoke with pharmacist---> no insurance and cost would be $566/month.
Spoke with Mery, she is new hospice nurse for Hospice, and says patient has insurance through her [employer] plan, which is effective. She called the Benefits person today who confirmed insurance is active. CM asked
to provide insurance info to [facility]. Explained can provide Copay Card once gutierrez check can be done and insurance is in place.
CM called [facility] again this afternoon and pharmacist says still not showing insurance as active.
Message to [facility] about gutierrez check as above.
Message to Dr Hall requesting PT/OT Evals.
Plan do Eliquis Gutierrez check tomorrow with [facility] and provide copay card.
Plan home with resumption [facility].
--- NOTE | 2024-06-29 17:01 | WOUNDNOTE ---
R FOREARM (NEAR ELBOW)
--- NOTE | 2024-06-29 17:07 | WOUNDNOTE ---
L THIGH/KNEE (MEDIAL)
--- NOTE | 2024-06-29 17:08 | WOUNDNOTE ---
WO RN note: Patient admitted with UGIB. Patient lives at home and is current with VN.
See H&P for complete history.
PMH: s/p LLE fem pop bypass 06/15/24 at [facility], CAD with stent, HTN, anxiety/depression, neuropathy, cirrhosis secondary to Tylenol, AAA.
Wound Location and type/assessment: Patient admitted with: R forearm small dermal skin tear, R forearm raised skin lesion, L medial thigh approximated incision with some scabbing. L medial calf incision approximated except for a small opening
distally, pink with scant yellow fibrin and scant serous drainage. Trace L leg edema. Pedal pulses heard via portable Doppler.
Appetite: poor recently.
Pressure redistribution devices in place: Centrella Max air bed. Patient turns easily in bed.
Plan: L thigh and L calf incisional dressings changed. Patient stated current leg incisional local care is Xeroform gauze, dry gauze secured with Tegaderm, change 3 times a week. Heels off bed with pillow.
Updated and confirmed orders with Dr. Hall and updated RN Rosana.
Care plan to be updated and will follow as needed. Patient instructed to make appointment with system configuration specialist re: R arm skin lesion and to follow up with vascular surgeon.
--- NOTE | 2024-06-29 17:20 | WOUNDNOTE ---
[facility] RN note: Patient admitted with UGIB. Patient lives at home and is current with VN.
See H&P for complete history.
PMH: s/p LLE fem pop bypass 06/15/24 at [facility], CAD with stent, HTN, anxiety/depression, neuropathy, cirrhosis secondary to Tylenol, AAA.
Wound Location and type/assessment: Patient admitted with: R forearm small dermal skin tear, R forearm raised skin lesion, L medial thigh approximated incision with some scabbing. L medial calf incision approximated except for a small opening
distally, pink with yellow fibrin and scant serous drainage. Trace L leg edema. Pedal pulses heard via portable Doppler.
Appetite: poor recently.
Pressure redistribution devices in place: Centrella Max air bed. Patient turns easily in bed.
Plan: L thigh and L calf incisional dressings changed. Patient stated current leg incisional local care is Xeroform gauze, dry gauze secured with Tegaderm, change 3 times a week. Heels off bed with pillow.
Updated and confirmed orders with Dr. Hall who approved d/c'ing SCDs and ordering foot pumps instead (patient did not want L knee high SCD d/t his calf incision) and updated RN Rosana.
Care plan to be updated and will follow as needed. Patient instructed to make appointment with hitch technician re: R arm skin lesion and to follow up with vascular surgeon.
[2024-06-29] MEDS: LIPITOR 40 MG PO (17:53)
[2024-06-29] MEDS: LYRICA 50 MG PO (21:21)
[2024-06-29 21:45] LABS: Hematocrit 19.4 % (39.0-52.0); Hemoglobin 6.7 g/dL (13.0-18.0)
[2024-06-30] VITALS (20 sets, daily range): BP systolic 130–160; BP diastolic 73–112; BMI 32.3
--- NOTE | 2024-06-30 00:05 | PTCARENOTE ---
Patient serial Hg at 2100 resulted at 6.7. VIDEO PRODUCTION COORDINATOR notified and orders placed for 2 units PRBC's. Patient asymptomatic at this time, denies pain and VSS. No BM, remains NPO, EGD scheduled for tomorrow. IV pantoprazole, octeotride and NSS infusing via
peripheral IV's - see MAR. First unit of PRBC's infusing, see TAR for documentation.
[2024-06-30] MEDS: PROTONIX 100 IV ×2 (02:09→11:32)
[2024-06-30] MEDS: NSS 1000 IV ×2 (04:16→14:53)
[2024-06-30] MEDS: SANDOSTATIN 500.6 MCG IV (06:08)
[2024-06-30 06:42] LABS: % Basophils 0.1 % (0-2); % Eosinophils 0.9 % (0-6); % Immature Granulocytes 0.6 % (0-0.5); % Lymphocytes 10.8 % (20.5-51.1); % Monocytes 6.4 % (1.7-9.3); % Neutrophils 81.2 % (42.2-75.2); Absolute Eosinophils 0.1 10^3/uL (0-0.7); Absolute Lymphocytes 0.7 10^3/uL (1.2-3.4); Absolute Monocytes 0.4 10^3/uL (0.1-0.6); Absolute Neutrophils 5.4 10^3/uL (1.4-6.5); Hematocrit 25.6 % (39.0-52.0); Hemoglobin 8.7 g/dL (13.0-18.0); Mean Corpuscular Hgb 30.3 pg (27.0-31.0); Mean Corpuscular Volume 89.2 fL (80.0-94.0); Nucleated Red Blood Cells % 0 % (-); Red Blood Cell Count 2.87 10^6/uL (4.70-6.10); Red Cell Dist. Width 17.2 % (11.5-14.5); White Blood Cell Count 6.7 10^3/uL (4.8-10.8)
[2024-06-30 06:44] LABS: INR 1.34; PT 17.1 Sec (11.4-14.6)
[2024-06-30 07:12] LABS: ALT (SGPT) 21 U/L (0-50); AST (SGOT) 34 U/L (17-59); Albumin 3.5 g/dl (3.5-5.0); Alkaline Phosphatase 78 U/L (38-126); Blood Urea Nitrogen 44 mg/dl (9-20); Calcium 8.5 mg/dl (8.4-10.2); Carbon Dioxide 19 mmol/L (22-30); Chloride 108 mmol/L (98-107); Estimated Creatinine Clearance 73 ml/min; Glucose 132 mg/dl (70-99); Sodium 140 mmol/L (135-145); Total Bilirubin 2.2 mg/dl (0.2-1.3); Total Protein 5.9 g/dl (6.3-8.2); eGFR > 60.00
--- NOTE | 2024-06-30 09:01 | PN.CDI ---
CDI
- -
CDI:
Physician Documentation Request
Admit Date: 06/28/24 14:35
Dear Doctor Rafael,
Please review the following and provide your response in the progress notes.
Clinical Indicators:
Pt admitted with GI bleed /Melena/Hematemesis /ABLA
Documented per H&P and progress note 06/29, ' Paroxysmal atrial fibrillation..' /Pt is on Eliquis/Plavix which are on hold for now
Documented per cardiology consult and progress note 06/29,' Permanent atrial fibrillation.....-Oral Anticoagulation: Rivaroxaban 20 mg on hold...'
If possible, please provide further specificity regarding atrial fibrillation, such as:
Permanent atrial fibrillation - when a decision has been made to accept the presence of AF and there is no further attempt to restore or maintain sinus rhythm
Paroxysmal atrial fibrillation - terminates spontaneously or with intervention within 7 days of onset
Other - please specify
Unable to further specify
Use of terms such as suspected, likely, concern for, or probable (associated with a specific diagnosis that is being evaluated, monitored, or treated as if it exists) are acceptable and can be coded in the inpatient setting, when documented at the
time of discharge.
Thank you,
Viviana Calle RN
CDI Specialist
[facility]
Please use your independent medical judgment in providing your response.
--- NOTE | 2024-06-30 09:36 | PTCARENOTE ---
NPO since MN, Voided continuous improvement intern. Denies pain. IVF IV Sandostatin sent infusing. Protonix on standby for procedure. VSS Oral hygiene completed. SN escorted pt to GI Lab. made aware.
--- NOTE | 2024-06-30 11:01 | PTCARENOTE ---
Returned from GI / PACU. Tele unchanged AF 70s, bp 154/86. Freq coughing episodes, exp wheezing noted posterior upper lobes. D/w providers will get neb tx x1. Clear liquid diet to be ordered. IVF/ IV protonix gtt infusing.
[2024-06-30] MEDS: DUONEB 3 ML INH (11:12)
[2024-06-30] MEDS: LYRICA 50 MG PO ×2 (11:32→19:25)
[2024-06-30] MEDS: ASPIR LOW (ENTERIC COATED) 81 MG PO (11:32)
--- NOTE | 2024-06-30 11:54 | W.PN.HOSP.TC ---
Today's Communication/Plan
-
Trending H&H
DC PPI and octreotide drip
Clear liquid diet
Awaiting patient decision for colonoscopy. For now continues to refuse
Assessment / Plan
Assessment / Plan
General: Well Developed, Well Nourished and No Apparent Distress
HEENT: NormoCephalic, Moist mucous membranes and Atraumatic
Respiratory: Clear
Cardiac: S1/S2 and Regular Rhythm; No Murmur or Rub
GI: Soft, Non Tender, Non Distended and Normal Bowel Sounds; No Organomegaly
Rectal: Deferred by Provider
Musculoskeletal: No Clubbing, No Cyanosis and No Edema. bruising over UE noted
Skin: No Rash
Neuro: Nonfocal/grossly intact
# Hematemesis/melena secondary to GI bleeding secondary to aspirin/Plavix and Xarelto simultaneously
# Acute blood loss anemia
-Hemoglobin 8.7 s/p 3u of PRBC. Trend h/h. 2 IV at all times.
-Cardiology recommending patient to be at least started on aspirin 81 mg daily as with recent stents
-s/p EGD with no significant source of pathology. No endoscopic evidence of ulceration, varices or gastric varices, GAVE or duodenal varices. Normal proximal esophagus and midesophagus. 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
Moore esophagus.
-Discontinue octreotide and antibiotics. PPI 40 mg p.o. daily.
-Colonoscopy is recommended/ Patient continues to refuse. Explained the risk of being restarted on Plavix and Eliquis and increased risk of bleeding.
-Zofran
-GI consulted
# AYM likely 2/2 Blood loss anemia and on diuretics/ACEI
-On clear liquids. Creatinine downtrending. DC fluids.
PAD with recent left femoropopliteal bypass on 06/15
-Once cleared by GI plan will be to restart patient on Eliquis and Plavix and DC ASA.
CAD with recent LAD stent on 06/13
-Hold Plavix for now
-Continue statin
Permanent atrial fibrillation
-Once cleared by GI plan will be to restart patient on Eliquis and Plavix.
Abdominal aortic aneurysm
-Being monitored
History of cirrhosis secondary to Tylenol
-Abd US - Cirrhotic appearing liver. No gallstones or bile duct dilatation. Limited visualization of the pancreas. No ascites identified. The spleen is normal in size.
Essential hypertension
-Hold hydrochlorothiazide
-Hold lisinopril
-avoid hypotension
Anxiety/depression
-Continue fluoxetine
Osteoarthritis
-Continue Percocet, tramadol, tizanidine
Iron deficiency anemia
Polyneuropathy
-Continue pregabalin
Full code
DVT prophylaxis�SCDs in setting of GIB
d/w with GI
Pt high risk as with recent LAD stent and LE bypass and now with GI bleeding and have to hold DOAC as with bleeding.
Anticipated Discharge: 24 - 48 hours
Subjective/Interval History
-
Date of Service: June 30, 2024
having coughing episode post EGD
Continues to refuse Colonoscopy
Objective Data
-
Labs:
Laboratory Results
06/30/24
06:16
WBC 6.7
Hgb 8.7 L D
Hct 25.6 L
Plt Count
PT 17.1 H
INR 1.34
Sodium 140
Potassium 4.0
Chloride 108 H
Carbon Dioxide 19 L
BUN 44 H
Creatinine 1.3
Glucose 132 H
Calcium 8.5
Total Bilirubin 2.2 H D
AST 34
ALT 21
Alkaline Phosphatase 78
Vital Signs:
Vital Signs
Temp Pulse Resp BP Pulse Ox
97.0 F 68 16 154/86 96
06/30/24 10:17 06/30/24 11:19 06/30/24 11:19 06/30/24 11:00 06/30/24 11:19
I&O
06/29/24 06/30/24 07/01/24
06:59 06:59 06:59
Intake Total 630 / 630 750 / 750
Output Total 800 / 800 1650 / 1650
Balance -170 / -170 -900 / -900
[2024-06-30] MEDS: ROCEPHIN 1000 MG IV (15:37)
[2024-06-30] MEDS: LIPITOR 40 MG PO (15:37)
[2024-06-30] MEDS: PROTONIX 40 MG PO (15:37)
[2024-06-30] MEDS: STERILE WATER FOR INJECTION 10 ML IV (15:38)
--- NOTE | 2024-06-30 17:08 | PTCARENOTE ---
No further coughing / wheezing - OOB in recliner chair all afternoon. Refusing Colonoscopy- wants to eat regular food- d/w Dr. Jay- diet order placed.
[2024-06-30] MEDS: PERCOCET 5/325 1 TABLET PO (18:52)
[2024-06-30] MEDS: ZANAFLEX 4 MG PO (23:00)
[2024-07-01] VITALS (11 sets, daily range): BP systolic 122–164; BP diastolic 75–100
[2024-07-01 00:31] LABS: Hematocrit 23.2 % (39.0-52.0); Hemoglobin 7.9 g/dL (13.0-18.0)
[2024-07-01] MEDS: NSS 1000 IV (02:02)
--- NOTE | 2024-07-01 03:46 | PTCARENOTE ---
Pt received from previous RN. Pt AAOx3. at bedside. Pt afib on monitor. Pt getting n/s @ 100 ml/hr. BP 139/84. Sat 99%. Pt having no bloody bm's or bloody emesis this evening. Assessment as documented.
[2024-07-01 05:18] LABS: % Basophils 0.2 % (0-2); % Eosinophils 0.9 % (0-6); % Immature Granulocytes 0.5 % (0-0.5); % Lymphocytes 16.4 % (20.5-51.1); % Monocytes 7.7 % (1.7-9.3); % Neutrophils 74.3 % (42.2-75.2); Absolute Eosinophils 0.1 10^3/uL (0-0.7); Absolute Lymphocytes 0.9 10^3/uL (1.2-3.4); Absolute Monocytes 0.4 10^3/uL (0.1-0.6); Absolute Neutrophils 4.1 10^3/uL (1.4-6.5); Hematocrit 25.6 % (39.0-52.0); Hemoglobin 8.3 g/dL (13.0-18.0); INR 1.18; Mean Corp Hgb Conc. 32.4 g/dL (33.0-37.0); Mean Corpuscular Hgb 30.4 pg (27.0-31.0); Mean Corpuscular Volume 93.8 fL (80.0-94.0); Nucleated Red Blood Cells % 0 % (-); PT 15.5 Sec (11.4-14.6); Red Blood Cell Count 2.73 10^6/uL (4.70-6.10); Red Cell Dist. Width 18.5 % (11.5-14.5); White Blood Cell Count 5.5 10^3/uL (4.8-10.8)
[2024-07-01 05:41] LABS: ALT (SGPT) 20 U/L (0-50); AST (SGOT) 32 U/L (17-59); Albumin 3.2 g/dl (3.5-5.0); Alkaline Phosphatase 71 U/L (38-126); Blood Urea Nitrogen 30 mg/dl (9-20); Calcium 8.5 mg/dl (8.4-10.2); Carbon Dioxide 23 mmol/L (22-30); Chloride 110 mmol/L (98-107); Estimated Creatinine Clearance 73 ml/min; Glucose 115 mg/dl (70-99); Potassium 4.6 mmol/L (3.5-5.1); Sodium 143 mmol/L (135-145); Total Bilirubin 0.6 mg/dl (0.2-1.3); Total Protein 5.6 g/dl (6.3-8.2); eGFR > 60.00
--- NOTE | 2024-07-01 06:00 | PTCARENOTE ---
Pt bradycardic overnight to 39 from the 60-70's, not sustaining. Denies symptoms. other VSS. CORD SPLICER notified. mag added to am labs.
[2024-07-01 06:44] LABS: Mean Platelet Volume 9.8 fL (7.4-10.4); Platelet Count 79 10^3/uL (130-400)
[2024-07-01 07:22] LABS: Magnesium 1.5 mg/dl (1.6-2.3)
[2024-07-01] MEDS: LYRICA 50 MG PO ×2 (08:10→19:23)
[2024-07-01] MEDS: PROTONIX 40 MG PO (08:10)
[2024-07-01] MEDS: ASPIR LOW (ENTERIC COATED) 81 MG PO (08:10)
[2024-07-01] MEDS: NSS IV (08:12)
[2024-07-01] MEDS: MAGNESIUM SULFATE 50 IV (09:15)
--- NOTE | 2024-07-01 11:17 | W.PN.GI.CBS2 ---
Today's Communication / Plan
-
Patient refusing colonoscopy. Hgb stable. GI will sign off. Needs outpatient f/u for management of cirrhosis.
Assessment / Plan
-
Impression: The patient is a 64-year-old male who has a PMH of A-fib on Xerolto for last 4-5 years, peripheral arterial disease status post left lower extremity femoropopliteal bypass on 06/15, preoperative CAD status post stent on 06/13,
hypertension, anxiety/depression, osteoarthritis, iron deficiency anemia, neuropathy, cirrhosis secondary to consuming alcohol, abdominal aortic aneurysm. The patient presented to ER complaining from coffe-grounded emesis and tarry stools. The
patient reported he started to take all 3 medication together including Xarelto with his Plavix and aspirin since last week. Additionally, he reported having blood clots from his nose and swallowing some of it which is what he thinks he vomited.
This has been since resuming his Xarelto. The patient also reported that his hgb level was found 4.9 about 2 years ago and he had EGD/Colonoscopy at [facility] which was not significant per patient`s report. He was recommended a capsule
endoscopic study but he did not have it. Additionally the patient reported having cirrhosis related alcohol consuming in the past but he did not have any follow up for that reason.
Assessment/Plan:
#Anemia, likely multifactorial
-Not clear it is from upper GI with current nose bleeds: recurrent nature with copious amounts of blood clots, per patient report
-Had 3 episodes of questionable hematemesis episodes
-Suspect his anemia is multifactorial
-IV and procedure sites are not bleeding but patient reported excessive bleeding from right forearm site yesterday.
-s/p EGD with findings suspicious for barretts esophagus but no source of GI bleeding, recommending colonoscopy, patient refusing
#Melena possibly secondary to upper GI bleeding likely secondary to anticoagulants
-Patient has been on Aspirin+Plavix+Xarelto since last week
-Last taking all anticoagulants was 06/27
-Had one episode of melena on 06/27
-Hgb level 6. 8 on 06/29 am/ 1 U RBC on 06/29 and HGB level 7.9 after transfusion. Repeat today shows stable hemoglobin of 8.3.
-Follow up Hgb level with hgb serials Q12 H
-plts 209 --> 129 --> 79; would continue to monitor. No other evidence of suggest DIC pictue. INR 1.18
-Keep HGB level ~8-9 considering his CAD
-If no bleeding in next 24 hours, would resume antiplatelet/anticoagulation per cardiology, I am unable to offer anything else as patient is refusing so I cannot adequately provide a risk assessment for rebleeding
-okay to transition to oral PPI
#Hx of cirrhosis
-Reports related alcohol consuming
- No prior workup, reportedly an incidental finding on CT Scan 2 years ago
-EGD w/o evidence of PHG, esophageal or gastric varices
-Abdominal US consistent with cirrhotic appearing liver
-AST 26, ALT 22, ALP 83 , Albumin 4, total protein 6.6
-Calculated MELD 3.0 = 11
-Patient needs to follow-up with GI/hepatology as outpatient for further workup and management of his cirrhosis and ongoing surveillance for HCC with AFP and US/MRI q6 months
Given patient refusing recommended endoscopic procedures, GI will sign off. Please call back if patient amenable to colonoscopy.
Subjective
Subjective
Date of Service: July 01, 2024
Hemoglobin stable at 8.3 this morning, improved from 7.9 yesterday. Discussed again with patient my strong recommendations to perform [place] colonoscopy as we do not know the source of his bleeding and he certainly lost considerable amount of blood
requiring blood transfusions. Despite explaining the risks of not moving forward with colonoscopy he is currently refusing. No evidence of GI bleeding overnight.
s/p EGD yesterday, with no source of bleeding identified
Impression: - No significant source of pathology throughout the
upper examined GI tract to account for patient's acute
blood loss anemia and dark heme (+) stools. There is
no endoscopic evidence of ulcerations, EV/GV, PHG,
GAVE or duodenal varices
- Normal proximal esophagus and mid esophagus.
- Esophageal mucosal changes suspicious for
short-segment Moore's esophagus. Biopsied to assess
for Moore's and dysplasia.
- Z-line irregular, 38 cm from the incisors.
- Small hiatal hernia.
- Minimal erythematous mucosa in the gastric body and
antrum. Biopsied.
- Otherwise, normal stomach on direct and retroflexion
views.
- Mild erythematous duodenopathy, otherwise normal
duodenum
- The examination was otherwise normal.
Objective
Data Reviewed
Laboratory Data:
Laboratory Results
07/01/24 04:30
07/01/24 04:30
Laboratory Results
PT 15.5 Sec (11.4-14.6) H 07/01/24 04:30
INR 1.18 07/01/24 04:30
APTT 39.4 Sec (23.4-35.0) H 06/28/24 12:54
Magnesium 1.5 mg/dl (1.6-2.3) L 07/01/24 04:30
Total Bilirubin 0.6 mg/dl (0.2-1.3) D 07/01/24 04:30
AST 32 U/L (17-59) 07/01/24 04:30
ALT 20 U/L (0-50) 07/01/24 04:30
Alkaline Phosphatase 71 U/L (38-126) 07/01/24 04:30
Vital Signs and I&O:
Vital Signs
Temp Pulse Resp BP Pulse Ox
97.9 F 65 21 123/79 97
07/01/24 07:12 07/01/24 06:00 07/01/24 06:00 07/01/24 06:00 07/01/24 06:00
I&O
06/30/24 07/01/24 07/02/24
06:59 06:59 06:59
Intake Total 750 / 750 1700 / 1700
Output Total 1650 / 1650 1700 / 1700 150 / 150
Balance -900 / -900 0 / 0 -150 / -150
Physical Exam
Physical Exam
HEENT: Anicteric and Other (See HPI )
Cardiology: S1, S2 and Irregular Rate/Rhythm
Pulmonary: Clear
GI: Soft, Non Distended and Non Tender
Extremities: No Edema
Neuro: Non Focal
--- NOTE | 2024-07-01 12:15 | W.PN.HOSP.TC ---
Today's Communication/Plan
-
Monitor Hgb
monitor for bleeding
cont asa
restart Plavix/Eliquis in am if no episode of bleeding-Per GI
Cards re-eval as with bradycardia
Assessment / Plan
Assessment / Plan
General: Well Developed, Well Nourished and No Apparent Distress
HEENT: NormoCephalic, Moist mucous membranes and Atraumatic
Respiratory: Clear
Cardiac: S1/S2 and irregular irregular, bradycardia
GI: Soft, Non Tender, Non Distended and Normal Bowel Sounds; No Organomegaly
Rectal: Deferred by Provider
Musculoskeletal: No Clubbing, No Cyanosis and No Edema. bruising over UE noted
Skin: No Rash
Neuro: Nonfocal/grossly intact
# Hematemesis/melena secondary to GI bleeding secondary to aspirin/Plavix and Xarelto simultaneously
# Acute blood loss anemia
-Hemoglobin 8.3 s/p 3u of PRBC. Trend h/h. 2 IV at all times.
-Cardiology recommending patient to be at least started on aspirin 81 mg daily as with recent stents
-s/p EGD with no significant source of pathology. No endoscopic evidence of ulceration, varices or gastric varices, GAVE or duodenal varices. Normal proximal esophagus and midesophagus. 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
Moore esophagus.
-Discontinue octreotide and antibiotics. PPI 40 mg p.o. daily.
-Colonoscopy is recommended/ Patient continues to refuse. Explained the risk of being restarted on Plavix and Eliquis and increased risk of bleeding.
-No further episode of bleeding overnight.
-Zofran
-GI signed off
# Permanent atrial fibrillation now with bradycardia
-Not on any AV Kaity blocking agents.
-start dopamine if with hypotension and bradycardia
-If no further episode of bleeding, start plavix and eliquis in am.
# AMY likely 2/2 Blood loss anemia and on diuretics/ACEI
-Creatinine downtrending. DC fluids.
PAD with recent left femoropopliteal bypass on 06/15
-If no further episode of bleeding, start plavix and eliquis in am as patient refusing Colonoscopy.
CAD with recent LAD stent on 06/13
-Hold Plavix for now
-Continue statin
Abdominal aortic aneurysm
-Being monitored
History of cirrhosis secondary to Tylenol
-Abd US - Cirrhotic appearing liver. No gallstones or bile duct dilatation. Limited visualization of the pancreas. No ascites identified. The spleen is normal in size.
Essential hypertension
-Hold hydrochlorothiazide
-Hold lisinopril
-avoid hypotension
Anxiety/depression
-Continue fluoxetine
Osteoarthritis
-Continue Percocet, tramadol, tizanidine
Iron deficiency anemia
Polyneuropathy
-Continue pregabalin
Hypomagnesium
-replete/monitor
Full code
DVT prophylaxis�SCDs in setting of GIB
Pt high risk as with recent LAD stent and LE bypass and now with GI bleeding and have to hold DOAC as with bleeding.
Anticipated Discharge: 24 - 48 hours
Subjective/Interval History
-
Date of Service: July 01, 2024
Patient with episode of bradycardia -asymptomatic
started overnight
pt refuse any prior history of bradycardia
HR dipped to 30-40s
Objective Data
-
Labs:
Laboratory Results
07/01/24 07/01/24
00:23 04:30
WBC 5.5
Hgb 7.9 L 8.3 L
Hct 23.2 L 25.6 L
Plt Count 79 L D
PT 15.5 H
INR 1.18
Sodium 143
Potassium 4.6
Chloride 110 H
Carbon Dioxide 23
BUN 30 H
Creatinine 1.3
Glucose 115 H
Calcium 8.5
Total Bilirubin 0.6 D
AST 32
ALT 20
Alkaline Phosphatase 71
Vital Signs:
Vital Signs
Temp Pulse Resp BP Pulse Ox
98.1 F 49 20 134/94 100
07/01/24 11:26 07/01/24 10:40 07/01/24 10:40 07/01/24 10:40 07/01/24 10:00
I&O
06/30/24 07/01/24 07/02/24
06:59 06:59 06:59
Intake Total 750 / 750 1700 / 1700
Output Total 1650 / 1650 1700 / 1700 300 / 300
Balance -900 / -900 0 / 0 -300 / -300
Data Reviewed
-
Total Time Spent with Patient (in minutes): 55
--- NOTE | 2024-07-01 12:23 | W.PN.CD ---
Addendum entered and electronically signed by Shravan Freeman MD 07/01/24 12:43:
64 yo male with PMH of CAD with recent stenting 06/13/24, permanent A fib on, admitted with GI bleed. We are consulted for bradycardia. He denies dizziness, syncope, SOB, CP. Exam with irregular rhythm, no murmurs, trace LE edema.
Tele: A fib with 2-2.5 sec pauses. With activity, HR seems to increase to 80s-90s.
Asymptomatic bradycardia. Avoid AV sunitha agents. No indication for PPM at this time. If he develops symptoms attributable to bradycardia, we will re-visit. Patient and family agreeable to plan.
CAD. Once Hgb stable, plan will be to transition ASA 81mg to plavix/eliquis.
please call us back with additional questions.
Original Note:
Today's Communication / Plan
-
Inpatient colonoscopy recommended by GI, patient refused
He is currently tolerating ASA, continue
Impression / Plan
-
Anemia with acute bleeding
-Status post 3 units PRBCs during this admission
-No active bleeding on EGD yesterday
-He is declining inpatient colonoscopy
Anticoagulant/antiplatelet therapy
-We stopped triple therapy
-Back on ASA
-Goal will be double therapy Eliquis / clopidogrel
Permanent atrial fibrillation
-Rates slow, no syncope/dizziness/lightheadedness/presyncope, he was not on AV sunitha agents in the outpatient setting
-Outpatient cardiology note reflects no plans to restore sinus rhythm
-He did not maintain sinus with amiodarone
-Oral Anticoagulation: Rivaroxaban 20 mg on hold, will transition to apixaban 5 mg twice daily when safe per GI (can use coupon card)
-[id number]: Score at least 2 (HTN, Vascular disease)
CAD
-Stable without chest pain
-PCI 06/13/2024 at [facility], back on ASA
-EKG OK, no ST-T changes, perhaps some QT prolongation, likely overestimated by computer
PAD
-Left femoral to posterior tibial artery bypass 06/15/2024
AMY, resolving
-Creatinine at the time of discharge 1.16 GVH. Some of BUN may be from blood in GI tract
-Creatinine clearance of -7 on metabolic panel at admission is likely a laboratory error
Hypertension, follow with anemia
History of cirrhosis, GI following, cirrhotic appearing on ultrasound
Dyslipidemia, atorvastatin on hold as he is n.p.o.
Thrombocytopenia, follows with hematology
COPD, stable without wheeze
Thoracic aortic dilation
Chronic pain, lumbar radiculopathy, status post lumbosacral epidural injections, follows with [facility]
Subjective:
Denies chest pain, dizziness, and shortness of breath
Physical Exam
Vital Signs/Labs
Vital Signs
Temp Pulse Resp BP Pulse Ox
98.1 F 49 20 134/94 100
07/01/24 11:26 07/01/24 10:40 07/01/24 10:40 07/01/24 10:40 07/01/24 10:00
06/30/24 07/01/24 07/02/24
06:59 06:59 06:59
Actual Weight 108.1 kg
07/01/24 04:30
07/01/24 04:30
PT 15.5 Sec (11.4-14.6) H 07/01/24 04:30
INR 1.18 07/01/24 04:30
APTT 39.4 Sec (23.4-35.0) H 06/28/24 12:54
Magnesium 1.5 mg/dl (1.6-2.3) L 07/01/24 04:30
Physical Exam
Constitutional: No acute distress and Comfortable
EENT: Anicteric and Moist mucous membranes
Cardiovascular: Rhythm & rate is regular, Pedal edema is absent and S1S2 is normal
Respiratory: Respiratory effort normal and Lungs clear to auscul.
GI: Soft, Distention absent, Flat, Non tender and Normal bowel sounds
Neuro/Psych: AO x 3
Other: Skin (Warm and dry without edema)
Data Reviewed
-
Date of Service: July 01, 2024
EKG: Report Reviewed by me
Labs: Labs Reviewed by me
--- NOTE | 2024-07-01 15:31 | PTCARENOTE ---
Received this am AAox3, AF rates 39-50s on tele-BP 140s-150s/ 70s - provider notified. Tolerating PO diet, IVF capped. Denies pain. Encouraged OOB- will eventually. Voids adequate in urinal. No stool. Can make needs known. here briefly
today.
--- NOTE | 2024-07-01 16:06 | CM ---
Addendum entered by Abby Russo RN 07/01/24 16:20:
Seen by wound care nurse.
Original Note:
Patient with Dx UGI bleed, epistaxis, anemia, cirrhosis. Room air. Regular diet.
Patient accepted by [facility] in [facility].
CM Consult: Gutierrez check Eliquis
Spoke with pharmacist, CRISTINA Pierson; they still show patient as not having insurance and therefore Eliquis is not covered.
Looked at insurance card in chart; BIN & PCN #s not visible on card that are needed by the pharmacy.
Phone call to patient's Mery;
left message requesting she provide insurance info to patient's pharmacy so Eliquis gutierrez check can be done.
Once gutierrez check can be done, CM can issue $10 copay card as needed.
Message to Dr Hall requesting PT/OT Evals.
Plan follow up after seen by PT/OT.
Plan do Eliquis Gutierrez check tomorrow with CRISTINA and provide copay card.
Plan home with resumption [facility].
[2024-07-01] MEDS: LIPITOR 40 MG PO (16:52)
[2024-07-01] MEDS: PERCOCET 5/325 1 TABLET PO (16:52)
[2024-07-01] MEDS: ZANAFLEX 4 MG PO (19:23)
--- NOTE | 2024-07-01 19:25 | PTCARENOTE ---
Pt c/o 01/31 pain to back. States 'it feels like muscle spasms.' Medicated with Zanaflex as ordered. Will continue to monitor.
[2024-07-02] VITALS (7 sets, daily range): BP systolic 117–148; BP diastolic 80–93; PULSE 58–101; O2SAT 99–100
--- NOTE | 2024-07-02 04:23 | PTCARENOTE ---
Pt resting well overnight. AAOx3. Good pain relief with pain med at beginning of shift. Able to self turn in bed. VSS. Afebrile. Afib/PVC/Pause on CM rate 30's-60's. Asymptomatic. Pt tolerating clear liquid diet. No BM overnight. +BS. Abdomen
round/distended/full/obese. Adequate urine output for shift. Skin as documented. No change from previous assessment. Call anderson remains within reach. Will continue to monitor.
[2024-07-02 04:33] LABS: INR 1.17; PT 15.2 Sec (11.4-14.6)
[2024-07-02 04:36] LABS: % Basophils 0.4 % (0-2); % Immature Granulocytes 0.4 % (0-0.5); % Lymphocytes 16.6 % (20.5-51.1); % Monocytes 9.6 % (1.7-9.3); Absolute Eosinophils 0.1 10^3/uL (0-0.7); Absolute Lymphocytes 0.8 10^3/uL (1.2-3.4); Absolute Monocytes 0.5 10^3/uL (0.1-0.6); Absolute Neutrophils 3.5 10^3/uL (1.4-6.5); Hematocrit 24.9 % (39.0-52.0); Hemoglobin 8.3 g/dL (13.0-18.0); Mean Corp Hgb Conc. 33.3 g/dL (33.0-37.0); Mean Corpuscular Hgb 30.4 pg (27.0-31.0); Mean Corpuscular Volume 91.2 fL (80.0-94.0); Nucleated Red Blood Cells % 0 % (-); Platelet Count 82 10^3/uL (130-400); Red Blood Cell Count 2.73 10^6/uL (4.70-6.10); Red Cell Dist. Width 18.6 % (11.5-14.5); White Blood Cell Count 4.8 10^3/uL (4.8-10.8)
[2024-07-02 04:46] LABS: ALT (SGPT) 19 U/L (0-50); AST (SGOT) 28 U/L (17-59); Albumin 3.1 g/dl (3.5-5.0); Alkaline Phosphatase 72 U/L (38-126); Blood Urea Nitrogen 27 mg/dl (9-20); Calcium 8.4 mg/dl (8.4-10.2); Carbon Dioxide 23 mmol/L (22-30); Chloride 108 mmol/L (98-107); Estimated Creatinine Clearance 79 ml/min; Glucose 106 mg/dl (70-99); Potassium 3.8 mmol/L (3.5-5.1); Sodium 142 mmol/L (135-145); Total Bilirubin 0.6 mg/dl (0.2-1.3); Total Protein 5.7 g/dl (6.3-8.2); eGFR > 60.00
[2024-07-02] MEDS: ASPIR LOW (ENTERIC COATED) PO (08:32)
[2024-07-02] MEDS: LYRICA 50 MG PO (08:33)
[2024-07-02] MEDS: PROTONIX 40 MG PO (08:33)
[2024-07-02] MEDS: ZANAFLEX 4 MG PO (08:36)
[2024-07-02] MEDS: PLAVIX 75 MG PO (08:53)
[2024-07-02] MEDS: ELIQUIS 5 MG PO (08:53)
--- NOTE | 2024-07-02 10:52 | W.PN.HOSP.TC ---
Today's Communication/Plan
-
dc home
plavix/eliquis
Assessment / Plan
Assessment / Plan
General: Well Developed, Well Nourished and No Apparent Distress
HEENT: NormoCephalic, Moist mucous membranes and Atraumatic
Respiratory: Clear
Cardiac: S1/S2 and irregular irregular, bradycardia
GI: Soft, Non Tender, Non Distended and Normal Bowel Sounds; No Organomegaly
Rectal: Deferred by Provider
Musculoskeletal: No Clubbing, No Cyanosis and No Edema. bruising over UE noted
Skin: No Rash
Neuro: Nonfocal/grossly intact
# Hematemesis/melena secondary to GI bleeding secondary to aspirin/Plavix and Xarelto simultaneously
# Acute blood loss anemia
-Hemoglobin 8.3 remains stable for 24h. s/p 3u of PRBC.
-Cardiology recommending patient to be at least started on aspirin 81 mg daily as with recent stents
-s/p EGD with no significant source of pathology. No endoscopic evidence of ulceration, varices or gastric varices, GAVE or duodenal varices. Normal proximal esophagus and midesophagus. 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
Moore esophagus.
-Discontinue octreotide and antibiotics. PPI 40 mg p.o. daily.
-Colonoscopy is recommended/ Patient continues to refuse. Explained the risk of being restarted on Plavix and Eliquis and increased risk of bleeding. Patient understands to return to ER for any further episodes of bleeding.
-No further episode of bleeding since admission
-Zofran
-GI signed off
# Permanent atrial fibrillation now with bradycardia
-Not on any AV Kaity blocking agents.
-s patient was eval by cardiology who recommended and avoid AV kaity agents. No indication for pacemaker.
-If no further episode of bleeding, started plavix and eliquis and DC asa per cards.
# AMY likely 2/2 Blood loss anemia and on diuretics/ACEI
-Creatinine downtrending. DC fluids.
PAD with recent left femoropopliteal bypass on 06/15
-If no further episode of bleeding, start plavix and eliquis as patient refusing Colonoscopy. f/u with OP cardiology.
CAD with recent LAD stent on 06/13
-restart Plavix for now DC asa per cards.
-Continue statin
Abdominal aortic aneurysm
-Being monitored
History of cirrhosis secondary to Tylenol
-Abd US - Cirrhotic appearing liver. No gallstones or bile duct dilatation. Limited visualization of the pancreas. No ascites identified. The spleen is normal in size.
Essential hypertension
-restart hydrochlorothiazide
-restart lisinopril
-
Anxiety/depression
-Continue fluoxetine
Osteoarthritis
-Continue Percocet, tramadol, tizanidine
Iron deficiency anemia
Polyneuropathy
-Continue pregabalin
Hypomagnesium
-replete/monitor
Full code
DVT prophylaxis�SCDs and now on Eliquis
More than 30 minutes spent in discharge including
Final examination of the patient
Summarizing hospital stay
Instructions for continuing care to all relevant caregivers
Preparation of discharge records, prescriptions, and referral forms
Total time spent (in minutes): 55
Anticipated Discharge: Today
Subjective/Interval History
-
Date of Service: July 02, 2024
Feeling better
Denies any further episode of hematemesis or melanotic stools
Tolerating diet
Objective Data
-
Labs:
Laboratory Results
07/02/24
04:15
WBC 4.8
Hgb 8.3 L
Hct 24.9 L
Plt Count 82 L
PT 15.2 H
INR 1.17
Sodium 142
Potassium 3.8
Chloride 108 H
Carbon Dioxide 23
BUN 27 H
Creatinine 1.2
Glucose 106 H
Calcium 8.4
Total Bilirubin 0.6
AST 28
ALT 19
Alkaline Phosphatase 72
Vital Signs:
Vital Signs
Temp Pulse Resp BP Pulse Ox
97.9 F 51 13 141/85 99
07/02/24 07:15 07/02/24 06:03 07/02/24 06:03 07/02/24 06:03 07/02/24 06:03
I&O
07/01/24 07/02/24 07/03/24
06:59 06:59 06:59
Intake Total 1700 / 1700 1720 / 1720
Output Total 1700 / 1700 2325 / 2325 250 / 250
Balance 0 / 0 -605 / -605 -250 / -250
--- NOTE | 2024-07-02 11:05 | W.DCSUMMARY ---
Discharge Summary
Discharge Data
Date of Admission: 06/28/24
Date of Discharge: 07/02/24
-
Pending Results: No
Hospital Course
64-year-old male past medical history of PAD with recent left femoral-popliteal bypass on 06/15, CAD status post LAD stent on 06/13, abdominal aortic aneurysm, history of cirrhosis, hypertension, anxiety, depression, osteoarthritis, iron deficiency
anemia, neuropathy, atrial fibrillation, this presenting from home with complaints of hematemesis. Patient was started on triple therapy with aspirin Plavix and Xarelto while on his recent hospitalization at [facility]. Upon admission
gastroenterology and cardiology was consulted. Aspirin Plavix and Xarelto was held. Per cardiology discussion okay to restart aspirin. Patient underwent endoscopy after being started on PPI drip. Hemoglobin was trended. Patient required total
of 3 units of PRBC. Hemoglobin stabilized. Endoscopy with no significant source of pathology. No endoscopic evidence of ulceration, varices or gastric varices, GAVE or duodenal varices. Normal proximal esophagus and midesophagus. Esophageal
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 Post endoscopy PPI drip octreotide and antibiotics were discontinued. Patient was started on PPI p.o. Colonoscopy is recommended/ Patient continues to refuse. Explained the risk of
being restarted on Plavix and Eliquis and increased risk of bleeding. Patient without any further episode of bleeding and thus Plavix was restarted. Cardiology recommended patient to be switched from Xarelto to Eliquis. Patient was provided with
coupon. Patient was also found to have bradycardia and was eval by cardiology. Cardiology recommended no current indication for pacemaker and fortunately patient was already NOT on any sunitha blocking agent.. patient understands to return to ER
for any further episodes of bleeding.
Discharge Plan
-
Patient Disposition: Home with Home Care
Discharge Diagnosis/Procedures: Anemia status post blood transfusion
Melena secondary to gastrointestinal bleeding
Permanent atrial fibrillation with bradycardia
Acute kidney injury
Condition: Fair
Diet: As tolerated and Low Cholesterol
Activity: With assistance and As tolerated
Blood Work: cbc in 5-7 days via primary doctor.
Other Services: [facility]
Activity Restrictions/Additional Instructions:
L thigh and calf incisional care-Xeroform gauze, dry gauze secure with Tegaderm, change 3 times a week (i.e. [id number]) and as needed for loosened dressing. .
R arm skin tear-clean with saline, silicone border foam, change every 3 days and as needed for loosened dressing.
Elevate heels off bed with pillow.
Make appointment with manager medicaid for R arm skin lesion.
Follow up with vascular surgeon.
follow up with Dr. Ac Parada (primary inpatient nursing aide) at [facility]
Referrals:
[facility]Visiting Nurse [Outside]
Cornell Santiago MD [Family Provider] - in less than 1 week
Additional Discharge Medication Instructions: Xarelto and aspirin was discontinued
Prescriptions:
New
Eliquis 5 mg Tablet
5 mg PO BID 30 Days Qty: 60 0RF
pantoprazole 40 mg Tablet,Delayed Release (Dr/Ec)
40 mg PO DAILY 30 Days Qty: 30 0RF
Continued
atorvastatin [Lipitor] 40 mg Tablet
40 mg PO QPM
tizanidine 4 mg Tablet
4 mg PO BIDPRN PRN (Reason: muscle spasms)
lisinopril 20 mg Tablet
20 mg PO DAILY
clopidogrel [Plavix] 75 mg Tablet
75 mg PO DAILY
tramadol 50 mg Tablet
50 mg PO BIDPRN PRN (Reason: moderate pain)
oxycodone-acetaminophen 5-325 mg Tablet
1 tab PO Q6HPRN PRN (Reason: severe pain)
bismuth subsalicylate [Pepto-Bismol] 262 mg/15 mL Suspension
524 mg PO DAILYPRN PRN (Reason: GERD)
hydrochlorothiazide 25 mg Tablet
25 mg PO DAILY
fluoxetine [Prozac] 20 mg Capsule
20 mg PO DAILY
pregabalin [Lyrica] 50 mg Capsule
50 mg PO BID
Discontinued
aspirin 81 mg Tablet,Delayed Release (Dr/Ec)
81 mg PO NOON
Xarelto 20 mg Tablet
20 mg PO QPM
Discharge Orders:
Discharge Patient (As Directed); Ordered 07/02/24
Ordered By: Shekhar Hall
Discharge Date and Time
Discharge Date/Time: 07/02/24 13:00
Print Language: IRANIAN
--- NOTE | 2024-07-02 12:15 | CM ---
MEt patient being discharge home. REviewed [facility] home care seeing him at home. Also he had [facility] on going discount card and gave card for first month.
Patient has no concerns about going home.
--- NOTE | 2024-07-04 14:27 | CM ---
Received phone call from Mery asking to switch patient from [facility] to [facility] due to insurance. [facility] and sent message to Suyapa asking if she could make the switch to [facility] and requested she contact
patient's . Referral would be for for wound care & PT/OT.
--- NOTE | 2024-07-04 14:40 | VNURNOTE ---
Home Health Liaison spoke with patient's spouse Mery to discuss [facility] nurse/therapy, visits, schedule and homebound status. Advised her that she needs to reach out to [facility] to cancel their service first/ today. She is agreeable and understands that
visits at home will be 2-3 x per week to assess and teach medical management. She is aware that [facility] will contact them for start of care in 1-2 days after discharge from .
[facility] referral completed in [facility] Port.
== END 2024-07-02 13:00 | disposition home health service (06) | DRG 378 ==
LOC: IMU 14:35
PROVIDERS: Registered Nurse; Student in an Organized Health Care Education/Training Program; ADMITTING PHYSICIAN Hospitalist; ATTENDING PHYSICIAN Hospitalist; CONSULT PHYSICIAN Internal Medicine Cardiovascular Disease; EMERGENCY PHYSICIAN Student in an Organized Health Care Education/Training Program; FAMILY PHYSICIAN Family Medicine; OTHER PHYSICIAN Internal Medicine
PROC: 30233N1 Transfusion of Nonautologous Red Blood Cells into Peripheral Vein, Percutaneous Approach (ICD-10-PCS; 2024-06-29)
PROC: 0DB58ZX Excision of Esophagus, Via Natural or Artificial Opening Endoscopic, Diagnostic (ICD-10-PCS; 2024-06-30)
DX: K92.2 Gastrointestinal hemorrhage, unspecified (principal); D62 Acute posthemorrhagic anemia; I48.21 Permanent atrial fibrillation; N17.9 Acute kidney failure, unspecified; D68.32 Hemorrhagic disorder due to extrinsic circulating anticoagulants; K92.0 Hematemesis; I73.9 Peripheral vascular disease, unspecified; I25.10 Atherosclerotic heart disease of native coronary artery without angina pectoris; I71.40 Abdominal aortic aneurysm, without rupture, unspecified; I10 Essential (primary) hypertension; F41.9 Anxiety disorder, unspecified; F32.A Depression, unspecified; M19.90 Unspecified osteoarthritis, unspecified site; D50.9 Iron deficiency anemia, unspecified; G62.9 Polyneuropathy, unspecified; E83.42 Hypomagnesemia; K44.9 Diaphragmatic hernia without obstruction or gangrene; K22.70 Barrett's esophagus without dysplasia; K74.60 Unspecified cirrhosis of liver; K22.89 Other specified disease of esophagus; K31.89 Other diseases of stomach and duodenum; Z79.01 Long term (current) use of anticoagulants; Z79.02 Long term (current) use of antithrombotics/antiplatelets; K92.1 Melena
CPT/HCPCS: 88305; 76700; 80053; 82607; 82746; 83540; 83550; 83735; 85014; 85018; 85025; 85610; 85730; 86850; 86900; 86901; 86920; 88342; 93005; 94640; 96361; 96374; 96375; 96376; 97163; 97166; 99291; P9016

== ENCOUNTER → 2024-07-12 06:27 | Outpatient (REF) | payer BC, SELFPAY | LOC: RAD 06:27 | PROVIDERS: ATTENDING PHYSICIAN Internal Medicine Cardiovascular Disease; FAMILY PHYSICIAN Family Medicine | DX: I65.29 Occlusion and stenosis of unspecified carotid artery (principal) | CPT/HCPCS: 93880 ==

== ENCOUNTER → 2024-09-19 07:32 | Outpatient (REF) | payer BC, SELFPAY | LOC: RAD 07:32 | PROVIDERS: ATTENDING PHYSICIAN Internal Medicine Cardiovascular Disease; FAMILY PHYSICIAN Family Medicine | DX: T82.599A Other mechanical complication of unspecified cardiac and vascular devices and implants, initial encounter (principal); I73.9 Peripheral vascular disease, unspecified; I65.29 Occlusion and stenosis of unspecified carotid artery | CPT/HCPCS: 93880 ==

== ENCOUNTER → 2024-09-26 06:54 | Outpatient (REF) | payer BC, SELFPAY | LOC: RAD 06:54 | PROVIDERS: ATTENDING PHYSICIAN Surgery Vascular Surgery; FAMILY PHYSICIAN Family Medicine | DX: I73.9 Peripheral vascular disease, unspecified (principal); Z98.890 Other specified postprocedural states | CPT/HCPCS: 93922; 93925 ==

== ENCOUNTER 2024-12-21 16:52 | Outpatient (RCR) | payer BC, SELFPAY | END 2024-12-21 23:59 | disposition home or self-care (01) | LOC: CRHB 16:52 | PROVIDERS: ATTENDING PHYSICIAN Internal Medicine Cardiovascular Disease; FAMILY PHYSICIAN Family Medicine | DX: I25.10 Atherosclerotic heart disease of native coronary artery without angina pectoris (principal); Z95.5 Presence of coronary angioplasty implant and graft | CPT/HCPCS: 93798 ==

== ENCOUNTER 2024-12-30 13:32 | Outpatient (RCR) | payer BC, SELFPAY | END 2024-12-30 23:59 | disposition home or self-care (01) | LOC: CRHB 13:32 | PROVIDERS: ATTENDING PHYSICIAN Internal Medicine Cardiovascular Disease; FAMILY PHYSICIAN Family Medicine | DX: I25.10 Atherosclerotic heart disease of native coronary artery without angina pectoris (principal); Z95.5 Presence of coronary angioplasty implant and graft | CPT/HCPCS: 93797; 93798 ==

== ENCOUNTER → 2025-01-03 10:35 | Outpatient (REF) | payer BC, SELFPAY ==
[2025-01-03 11:27] LABS: % Basophils 0.2 % (0-2); % Eosinophils 0.5 % (0-6); % Immature Granulocytes 0.5 % (0-0.5); % Lymphocytes 11.9 % (20.5-51.1); % Monocytes 8.9 % (1.7-9.3); Absolute Lymphocytes 0.5 10^3/uL (1.2-3.4); Absolute Monocytes 0.4 10^3/uL (0.1-0.6); Absolute Neutrophils 3.4 10^3/uL (1.4-6.5); Hematocrit 27.4 % (39.0-52.0); Hemoglobin 8.1 g/dL (13.0-18.0); Mean Corp Hgb Conc. 29.6 g/dL (33.0-37.0); Mean Corpuscular Hgb 22.7 pg (27.0-31.0); Mean Corpuscular Volume 76.8 fL (80.0-94.0); Mean Platelet Volume 10.6 fL (7.4-10.4); Nucleated Red Blood Cells % 0 % (-); Platelet Count 114 10^3/uL (130-400); Red Blood Cell Count 3.57 10^6/uL (4.70-6.10); Red Cell Dist. Width 16.9 % (11.5-14.5); White Blood Cell Count 4.4 10^3/uL (4.8-10.8)
[2025-01-03 13:13] LABS: ALT (SGPT) 27 U/L (0-50); AST (SGOT) 35 U/L (17-59); Albumin 4.5 g/dl (3.5-5.0); Alkaline Phosphatase 109 U/L (38-126); Blood Urea Nitrogen 24 mg/dl (9-20); Calcium 8.8 mg/dl (8.4-10.2); Carbon Dioxide 21 mmol/L (22-30); Chloride 110 mmol/L (98-107); Glucose 106 mg/dl (70-99); Iron 42 ug/dl (49-181); Potassium 4.5 mmol/L (3.5-5.1); Sodium 141 mmol/L (135-145); TSH Reflex To Free T4 2.24 uIU/ml (0.47-4.68); Total Protein 7.2 g/dl (6.3-8.2); eGFR 56.13
[2025-01-03 13:23] LABS: Percent Saturation 9 % (20-50); Total Iron Binding Capacity 439 ug/dl (261-462)
[2025-01-03 20:11] LABS: Ferritin 8.1 ng/ml (17.9-464.0)
[2025-01-03 20:25] LABS: Vitamin B12 468 pg/ml (239-931)
== END ==
LOC: REG 10:35
PROVIDERS: ATTENDING PHYSICIAN Family Medicine
DX: R06.02 Shortness of breath (principal); R20.0 Anesthesia of skin; D64.9 Anemia, unspecified
CPT/HCPCS: 36415; 80053; 82607; 82728; 83540; 83550; 84443; 85025

== ENCOUNTER 2025-01-10 08:57 | Outpatient (RCR) | payer BC, SELFPAY ==
[2025-01-10 09:58] VITALS: BP 112/68
[2025-01-10 10:22] VITALS: BP 116/71
[2025-01-10 12:09] VITALS: BP 113/65
== END 2025-01-21 23:59 | disposition home or self-care (01) ==
LOC: OID 08:57
PROVIDERS: ATTENDING PHYSICIAN Family Medicine
DX: D64.9 Anemia, unspecified (principal); R06.02 Shortness of breath; R20.0 Anesthesia of skin
CPT/HCPCS: 36415; 36430; 86850; 86900; 86901; 86920; P9016

== ENCOUNTER → 2025-01-20 16:10 | Outpatient (REF) | payer BC, SELFPAY ==
[2025-01-20 16:52] LABS: % Basophils 0.6 % (0-2); % Eosinophils 1.1 % (0-6); % Immature Granulocytes 0.4 % (0-0.5); % Lymphocytes 12.3 % (20.5-51.1); % Monocytes 8.7 % (1.7-9.3); % Neutrophils 76.9 % (42.2-75.2); Absolute Eosinophils 0.1 10^3/uL (0-0.7); Absolute Lymphocytes 0.7 10^3/uL (1.2-3.4); Absolute Monocytes 0.5 10^3/uL (0.1-0.6); Absolute Neutrophils 4.2 10^3/uL (1.4-6.5); Hematocrit 30.5 % (39.0-52.0); Hemoglobin 9.3 g/dL (13.0-18.0); Mean Corp Hgb Conc. 30.5 g/dL (33.0-37.0); Mean Corpuscular Hgb 22.5 pg (27.0-31.0); Mean Corpuscular Volume 73.8 fL (80.0-94.0); Mean Platelet Volume 10.4 fL (7.4-10.4); Nucleated Red Blood Cells % 0 % (-); Platelet Count 141 10^3/uL (130-400); Red Blood Cell Count 4.13 10^6/uL (4.70-6.10); Red Cell Dist. Width 17.7 % (11.5-14.5); White Blood Cell Count 5.4 10^3/uL (4.8-10.8)
[2025-01-20 17:03] LABS: Iron 49 ug/dl (49-181)
[2025-01-20 17:32] LABS: Percent Saturation 11 % (20-50); Total Iron Binding Capacity 415 ug/dl (261-462)
[2025-01-20 17:45] LABS: Ferritin 10.3 ng/ml (17.9-464.0)
== END ==
LOC: REG 16:10
PROVIDERS: ATTENDING PHYSICIAN Nurse Practitioner Adult Health; FAMILY PHYSICIAN Family Medicine
DX: D50.9 Iron deficiency anemia, unspecified (principal)
CPT/HCPCS: 36415; 82728; 83540; 83550; 85025

== ENCOUNTER 2025-02-20 12:50 | Outpatient (RCR) | payer BC, SELFPAY ==
[2025-02-06] MEDS: VENOFER 110 MG IV (13:21)
[2025-02-06 13:24] LABS: % Basophils 0.2 % (0-2); % Eosinophils 0.4 % (0-6); % Immature Granulocytes 0.2 % (0-0.5); % Lymphocytes 7.7 % (20.5-51.1); % Monocytes 8.5 % (1.7-9.3); Absolute Lymphocytes 0.4 10^3/uL (1.2-3.4); Absolute Monocytes 0.4 10^3/uL (0.1-0.6); Absolute Neutrophils 3.9 10^3/uL (1.4-6.5); Hematocrit 27.1 % (39.0-52.0); Hemoglobin 8.5 g/dL (13.0-18.0); Mean Corp Hgb Conc. 31.4 g/dL (33.0-37.0); Mean Corpuscular Hgb 22.6 pg (27.0-31.0); Mean Corpuscular Volume 72.1 fL (80.0-94.0); Mean Platelet Volume 9.2 fL (7.4-10.4); Platelet Count 102 10^3/uL (130-400); Red Blood Cell Count 3.76 10^6/uL (4.70-6.10); White Blood Cell Count 4.7 10^3/uL (4.8-10.8)
[2025-02-06 13:39] VITALS: BP 153/86
[2025-02-06 14:41] VITALS: BP 130/76
[2025-02-09] MEDS: VENOFER 110 MG IV (12:15)
[2025-02-09 12:21] VITALS: BP 127/72
[2025-02-13 13:20] LABS: % Basophils 0.6 % (0-2); % Eosinophils 1.2 % (0-6); % Immature Granulocytes 0.3 % (0-0.5); % Lymphocytes 10.2 % (20.5-51.1); % Monocytes 7.5 % (1.7-9.3); % Neutrophils 80.2 % (42.2-75.2); Absolute Lymphocytes 0.3 10^3/uL (1.2-3.4); Absolute Monocytes 0.2 10^3/uL (0.1-0.6); Absolute Neutrophils 2.6 10^3/uL (1.4-6.5); Hematocrit 26.3 % (39.0-52.0); Hemoglobin 8.2 g/dL (13.0-18.0); Mean Corp Hgb Conc. 31.2 g/dL (33.0-37.0); Mean Corpuscular Volume 76.9 fL (80.0-94.0); Mean Platelet Volume 9.7 fL (7.4-10.4); Platelet Count 90 10^3/uL (130-400); Red Blood Cell Count 3.42 10^6/uL (4.70-6.10); Red Cell Dist. Width 22.7 % (11.5-14.5); White Blood Cell Count 3.2 10^3/uL (4.8-10.8)
[2025-02-13] MEDS: VENOFER 110 MG IV (13:20)
[2025-02-13 13:23] VITALS: BP 121/65
[2025-02-13 14:29] VITALS: BP 114/58
[2025-02-16 13:15] VITALS: BP 166/65
[2025-02-16] MEDS: VENOFER 110 MG IV (13:36)
[2025-02-16 14:44] VITALS: BP 144/93
[2025-02-20] MEDS: VENOFER 110 MG IV (13:33)
[2025-02-20 13:34] LABS: % Basophils 0.2 % (0-2); % Eosinophils 0.7 % (0-6); % Lymphocytes 9.9 % (20.5-51.1); % Monocytes 8.2 % (1.7-9.3); Absolute Lymphocytes 0.4 10^3/uL (1.2-3.4); Absolute Monocytes 0.3 10^3/uL (0.1-0.6); Absolute Neutrophils 3.3 10^3/uL (1.4-6.5); Hematocrit 30.1 % (39.0-52.0); Hemoglobin 9.5 g/dL (13.0-18.0); Mean Corp Hgb Conc. 31.6 g/dL (33.0-37.0); Mean Corpuscular Hgb 25.5 pg (27.0-31.0); Mean Corpuscular Volume 80.9 fL (80.0-94.0); Mean Platelet Volume 9.6 fL (7.4-10.4); Platelet Count 107 10^3/uL (130-400); Red Blood Cell Count 3.72 10^6/uL (4.70-6.10); Red Cell Dist. Width 28.2 % (11.5-14.5); White Blood Cell Count 4.1 10^3/uL (4.8-10.8)
[2025-02-20 13:42] VITALS: BP 149/96
[2025-02-20 13:46] VITALS: BP 139/91
== END 2025-02-20 23:59 | disposition home or self-care (01) ==
LOC: OID 12:50
PROVIDERS: ATTENDING PHYSICIAN Nurse Practitioner Adult Health; FAMILY PHYSICIAN Family Medicine
DX: D50.9 Iron deficiency anemia, unspecified (principal); Z87.891 Personal history of nicotine dependence
CPT/HCPCS: 36415; 85025; 96365; J1756

== ENCOUNTER → 2025-03-24 09:04 | Outpatient (REF) | payer MEDICARE, OTHER, SELFPAY ==
[2025-03-24 10:14] LABS: Hematocrit 34.7 % (39.0-52.0); Hemoglobin 11.3 g/dL (13.0-18.0); Mean Corp Hgb Conc. 32.6 g/dL (33.0-37.0); Mean Corpuscular Volume 89.2 fL (80.0-94.0); Nucleated Red Blood Cells % 0 % (-); Platelet Count 145 10^3/uL (130-400); Red Cell Dist. Width 23.6 % (11.5-14.5)
[2025-03-24 10:23] LABS: INR 1.25; PT 16.0 Sec (11.4-14.6)
[2025-03-24 10:24] LABS: APTT 30.7 Sec (23.4-35.0)
[2025-03-24 10:46] LABS: ALT (SGPT) 58 U/L (0-50); AST (SGOT) 44 U/L (17-59); Albumin 4.1 g/dl (3.5-5.0); Alkaline Phosphatase 106 U/L (38-126); Blood Urea Nitrogen 26 mg/dl (9-20); Calcium 9.0 mg/dl (8.4-10.2); Carbon Dioxide 23 mmol/L (22-30); Chloride 106 mmol/L (98-107); Glucose 113 mg/dl (70-99); Iron 50 ug/dl (49-181); Potassium 4.9 mmol/L (3.5-5.1); Sodium 138 mmol/L (135-145); Total Protein 6.9 g/dl (6.3-8.2); eGFR > 60.00
[2025-03-24 10:55] LABS: Total Iron Binding Capacity 349 ug/dl (261-462)
[2025-03-24 11:15] LABS: Hepatitis B Surface Antigen Negative (Negative)
[2025-03-24 11:20] LABS: AFP Male/Tumor Marker 2.15 ng/ml
[2025-03-24 11:21] LABS: Ferritin 36.2 ng/ml (17.9-464.0)
[2025-03-24 11:32] LABS: Hepatitis A Antibody, Total Negative (Negative); Hepatitis C Antibody Negative (Negative)
[2025-03-27 09:27] LABS: Mitochondrial M2 Ab, IgG 2.4 Units (0.0-24.9)
== END ==
LOC: REG 09:04
PROVIDERS: ATTENDING PHYSICIAN Student in an Organized Health Care Education/Training Program; FAMILY PHYSICIAN Family Medicine; REFERRING PHYSICIAN Nurse Practitioner Adult Health
DX: K74.69 Other cirrhosis of liver (principal); D50.9 Iron deficiency anemia, unspecified; E78.5 Hyperlipidemia, unspecified
CPT/HCPCS: 36415; 80053; 82103; 82104; 82105; 82390; 82728; 82784; 82787; 83516; 83540; 83550; 84443; 85025; 85610; 85730; 86015; 86038; 86376; 86381; 86704; 86706; 86708; 86803; 87340

== ENCOUNTER → 2025-04-03 15:05 | Outpatient (REF) | payer MEDICARE, OTHER, SELFPAY | LOC: MRI 15:05 | PROVIDERS: ATTENDING PHYSICIAN Student in an Organized Health Care Education/Training Program; FAMILY PHYSICIAN Family Medicine | DX: K74.69 Other cirrhosis of liver (principal) | CPT/HCPCS: 74183; 76391; A9575 ==

== ENCOUNTER 2025-04-19 11:12 | Outpatient (RCR) | payer MEDICARE, OTHER, SELFPAY ==
[2025-04-12 13:59] LABS: Hematocrit 33.4 % (39.0-52.0); Hemoglobin 11.2 g/dL (13.0-18.0); Mean Corp Hgb Conc. 33.5 g/dL (33.0-37.0); Mean Corpuscular Volume 84.8 fL (80.0-94.0); Platelet Count 100 10^3/uL (130-400); Red Cell Dist. Width 17.6 % (11.5-14.5)
[2025-04-12] MEDS: INJECTAFER 265 MG IV (14:02)
[2025-04-12 14:12] VITALS: BP 104/68
[2025-04-12 15:05] VITALS: BP 101/60
[2025-04-12 16:14] LABS: Vitamin D, 25-OH*** 58.0 ng/mL (30-80)
[2025-04-19 11:30] VITALS: BP 131/90
[2025-04-19] MEDS: INJECTAFER 265 MG IV (11:54)
[2025-04-19 12:30] VITALS: BP 125/74
[2025-04-19 13:18] LABS: Hematocrit 35.1 % (39.0-52.0); Hemoglobin 11.5 g/dL (13.0-18.0); Mean Corp Hgb Conc. 32.8 g/dL (33.0-37.0); Mean Corpuscular Volume 85.8 fL (80.0-94.0); Nucleated Red Blood Cells % 0 % (-); Platelet Count 106 10^3/uL (130-400); Red Cell Dist. Width 17.3 % (11.5-14.5)
== END 2025-04-20 08:16 | disposition home or self-care (01) ==
LOC: OID 11:12
PROVIDERS: Internal Medicine Hematology & Oncology; ATTENDING PHYSICIAN Nurse Practitioner Adult Health; FAMILY PHYSICIAN Family Medicine
DX: D50.9 Iron deficiency anemia, unspecified (principal); R53.83 Other fatigue; Z87.891 Personal history of nicotine dependence; R06.02 Shortness of breath; R06.82 Tachypnea, not elsewhere classified; Z79.01 Long term (current) use of anticoagulants
CPT/HCPCS: 82306; 84100; 85025; 96365; J1439

== ENCOUNTER 2025-05-30 06:21 | Day surgery (SDC) | payer MEDICARE, OTHER, SELFPAY | END 2025-05-30 14:54 | disposition home or self-care (01) | LOC: GI 06:21 | PROVIDERS: ATTENDING PHYSICIAN Student in an Organized Health Care Education/Training Program | DX: D50.9 Iron deficiency anemia, unspecified (principal); K64.8 Other hemorrhoids; K57.30 Diverticulosis of large intestine without perforation or abscess without bleeding; K62.89 Other specified diseases of anus and rectum; K74.60 Unspecified cirrhosis of liver; K44.9 Diaphragmatic hernia without obstruction or gangrene; R76.8 Other specified abnormal immunological findings in serum; K22.89 Other specified disease of esophagus; D12.0 Benign neoplasm of cecum; D12.3 Benign neoplasm of transverse colon; D12.4 Benign neoplasm of descending colon; D12.5 Benign neoplasm of sigmoid colon; D12.7 Benign neoplasm of rectosigmoid junction; D3A.026 Benign carcinoid tumor of the rectum; K29.50 Unspecified chronic gastritis without bleeding | CPT/HCPCS: 45385; 45380; 43239; 88305; 88341; 88342 ==

== ENCOUNTER 2025-06-27 06:11 | Day surgery (SDC) | payer MEDICARE, OTHER, SELFPAY ==
[2025-06-27 11:53] VITALS: BMI 29.2
[2025-06-27 11:54] VITALS: BMI 29.2
[2025-06-27 12:03] VITALS: BP 149/97
[2025-06-27 14:45] VITALS: BP 131/96
[2025-06-27 15:00] VITALS: BP 167/91
[2025-06-27 15:05] VITALS: BP 167/91
[2025-06-27 15:15] VITALS: BP 157/93
== END 2025-06-27 15:30 | disposition home or self-care (01) ==
LOC: SDS 06:11
PROVIDERS: ATTENDING PHYSICIAN Internal Medicine Gastroenterology
DX: K63.5 Polyp of colon (principal); K64.0 First degree hemorrhoids; K57.30 Diverticulosis of large intestine without perforation or abscess without bleeding; D12.5 Benign neoplasm of sigmoid colon
CPT/HCPCS: 45390; 88305